=== PATIENT | male | born 1955 | race Caucasian/White ===

== ENCOUNTER 2018-07-20 00:59 | Emergency (ER) | payer OTHER, SELFPAY ==
[2018-07-20 01:15] VITALS: BMI 36.9
--- NOTE | 2018-07-20 01:15 | CT_ITS ---
CT abdomen pelvis wo con INDICATION: Right flank pain. ITS.REASON: right flank pain ORDERING PHYSICIAN: Massimo Thomas MD PATIENT AGE: 63 years COMPARISONNo previous abdominal studies for comparison: . CT thoracic spine from 2018 includes only uppermost retroperitoneal structures TECHNIQUE: No oral nor IV contrast utilized Axial images obtained with sagittal and coronal reformats. All CT scans at the facility use one or more dose reduction, viz: automated exposure control, ma/kV adjustment per patient size (including targeted exams where dose is matched to indication, i.e. head), or iterative reconstruction technique. FINDINGS Lower thorax. Lung bases with chronic changes emphysematous changes mild airway thickening. Mild scarring posterior lung bases with scant pleural thickening posteriorly. Heart normal size. It calcification or stent involving circumflex Abdomen/pelvis.. Lack of oral and IV contrast somewhat decreases sensitivity. Liver Diffuse fatty changes of the liver. No focal lesions. Gallbladder. Contracted. No calcified stones. No biliary ductal dilatation Question some e possible early portal venous collaterals posterior to the stomach and superior to the pancreas towards the spleen. However the spleen is normal upper normal size measuring 14 cm length.. Note Dense 1 cm granuloma calcification at spleen. TRACT. No urinary tract calculi nor obstruction. Ureters unremarkable. PELVIS. .. Diffuse bladder wall thickening which appears more than I would attribute to lack of distention. Thus suspect cystitis requires correlation with urinalysis... Prostate appears modest size seminal vesicles unremarkable. No pelvic adenopathy. GI TRACT. Mild Colonic diverticulosis most evident sigmoid colon. With scattered diverticula elsewhere. No diverticulitis. Moderate stool throughout the right colon with a few diverticuli here. The appendix is normal well visualized. Terminal ileum appears normal. Stomach. Moderate food filled stomach. Small bowel appears satisfactory. No area of inflammation of no free fluid abdomen/pelvis. No free air. Aorta. Mild aneurysmal dilatation aorta just inferior to the renal arteries where aorta measures up to 3.1 cm diameter. Mild dilatation distal aorta and bifurcation. It measures 2.9 mm maximum at this point. The distal right common iliac artery is also dilated up to 16 mm just proximal to its branch point. IMPRESSION: ... 1. Diffuse wall thickening urinary bladder.-suspect cystitis warrants correlation with urinalysis. 2. No nephrolithiasis, nor hydronephrosis, nor obstructing ureteral calculi . Appendix normal . Moderate size benign-appearing nodes of the groin bilaterally 3. Developing Colonic diverticulosis. No diverticulitis 4. Mild infrarenal abdominal aortic aneurysmal dilatation. Calcified aorta up to 3.1 cm cm diameter just inferior to the renal arteries and up to 2.9 cm more distally just above bifurcation 1.6 cm diameter right common iliac artery. 5.. Fatty liver.
[2018-07-20 01:25] LABS: Microscopic, Urine URINE MICROSCOPIC (MICROSCOPIC)
[2018-07-20 01:26] LABS: Basophils % 0.2 % (0.1-2.0); Eosinophils # 0.1 K/mm3 (0.0-0.4); Eosinophils % 0.9 % (0.1-12.0); Hematocrit 45.6 % (42.0-52.0); Hemoglobin 16.1 g/dL (14.1-18.0); Lymphocytes # 2.5 K/mm3 (0.7-4.5); Lymphocytes % 18.1 % (10-50); Mean Corpuscular HGB Conc 35.3 g/dL (31.8-35.4); Mean Corpuscular Hemoglobin 33.6 pg (27.0-31.2); Mean Corpuscular Volume 95.2 fl (80-94); Mean Platelet Volume 7.9 fl (7.4-10.4); Monocytes % 7.3 % (1.7-9.3); Neutrophils # 10.1 K/mm3 (1.8-7.8); Neutrophils % 73.4 % (37.0-80.0); Platelet Count 222 K/mm3 (142-424); Red Blood Count 4.79 M/mm3 (4.60-6.20); Red Cell Distribution Width 12.9 % (11.5-17.5); White Blood Count 13.8 K/mm3 (4.8-10.8)
[2018-07-20 01:31] LABS: Appearance,Urine TURBID (Clear); Blood, Urine 3+ (Negative); Color,Urine RED (Yellow); Glucose,Urine (UA) Negative (Negative); Ketones,Urine TRACE (Negative); Leukocyte Esterase,Urine 3+ (Negative); Nitrate,Urine POSITIVE (Negative); Protein,Urine 3+ (Negative); Specific Gravity, Urine 1.015 (1.005-1.030)
[2018-07-20 01:33] LABS: Bilirubin,Urine Negative (Negative)
[2018-07-20 01:37] VITALS: BP 159/89; PULSE 75; RESP 18; TEMP 36.3; O2SAT 94; BMI 36.9
[2018-07-20 01:37] LABS: Bacteria,Urine 1+ /lpf; RBC,Urine TNTC #/hpf (0-3); Squamous Epithelial Cell,Urine Occasional #/hpf (0-5)
[2018-07-20 01:39] LABS: Alanine Aminotransferase 82 U/L (12-78); Albumin Level 4.1 gm/dL (3.4-5.0); Albumin/Globulin Ratio 1.2 (1.1-1.8); Alkaline Phosphatase 126 U/L (46-116); Anion Gap 14.1 mEq/L (5-15); Aspartate Amino Transferase 29 U/L (15-37); Bilirubin,Total 0.5 mg/dL (0.2-1.0); Blood Urea Nitrogen 17 mg/dL (7-18); Calcium 9.3 mg/dL (8.5-10.1); Carbon Dioxide 26 mmol/L (21.0-32.0); Chloride 97 mmol/L (98-107); Creatinine Clearance Estimated 90 mL/min (50-200); Creatinine,Serum 1.35 mg/dL (0.70-1.30); Estimated Glomerular Filt Rate 53 ml/min (>60); GFR (African American) 65 ML/MIN (>60); Globulin 3.5 gm/dl (1.3-3.2); Glucose 183 mg/dL (74-106); Potassium 4.1 mmoL/L (3.5-5.1); Sodium 133 mmol/L (136-145); Total Protein,Serum 7.6 gm/dL (6.4-8.2)
--- NOTE | 2018-07-20 01:58 | HMH.EDGENADL ---
ED Disposition Clinical Impression: Renal insufficiency, Obesity (BMI 30-39.9) UTI (urinary tract infection) Qualifiers: Urinary tract infection type: acute cystitis Hematuria presence: with hematuria Qualified Code(s): N30.01 - Acute cystitis with hematuria AAA (abdominal aortic aneurysm) Qualifiers: Presence of rupture: without rupture Qualified Code(s): I71.4 - Abdominal aortic aneurysm, without rupture Hematuria Qualifiers: Hematuria type: gross Qualified Code(s): R31.0 - Gross hematuria Disposition: Home, Self-Care Condition on Discharge: Fair Instructions: DI for Hematuria Additional Instructions: use meds and see pcp and urology Prescriptions: levoFLOXacin [Levaquin 500mg tab] 500 mg PO DAILY #7 tab Phenazopyridine HCl [Pyridium 200mg Tablet] 200 pow PO TID #6 tab Referrals: Provider,Referral, [Primary Care Provider] - - Critical Care Critical Care Time: No Attestation: On 07/20/18, the high probability of a clinically significant, sudden or life threatening deterioration of the following system(s) required my full and direct attention, intervention and personal management. The time I documented below is in addition to time spent performing reported procedures but includes the following listed in this critical care notation. Medical Decision Making - Medical Records Medical records reviewed: Yes: I reviewed the patient's medical records. - Simone Inquiry Pt receiving controlled substance: No Vital Signs: 07/20/18 01:37 07/20/18 03:00 07/20/18 03:30 Temperature 97.4 F L Temperature Source Oral Pulse Rate [Right] 75 72 72 Respiratory Rate 18 18 18 Blood Pressure [Right Arm] 159/89 H 152/88 H 156/85 H Blood Pressure Mean [Right Arm] 112 109 108 Blood Pressure Source [Right Arm] Automatic Cuff Automatic Cuff Automatic Cuff Blood Pressure Position [Right Arm] Sitting Sitting Sitting 02 Sat by Pulse Oximetry 94 L 96 96 Oxygen Delivery Method Room Air Room Air Room Air - Lab Data Lab results reviewed: Yes: I reviewed the patient's lab results. Lab Results 07/20/18 01:21: Urine Color Red, Urine Appearance Turbid, Urine pH 5.0, Ur Specific [place] 1.015, Urine Protein 3+, Urine Glucose (UA) Negative, Urine Ketones Trace, Urine Blood 3+, Urine Nitrate Positive, Urine Bilirubin Negative, Urine Urobilinogen 1.0, Ur Leukocyte Esterase 3+ A, Urine RBC Tntc, Urine WBC 10-20, Ur Squamous Epith Cells Occasional, Urine Bacteria 1+ 07/20/18 01:21: WBC 13.8 H, RBC 4.79, Hgb 16.1, Hct 45.6, MCV 95.2 H, MCH 33.6 H, MCHC 35.3, RDW 12.9, Plt Count 222, MPV 7.9, Neut % (Auto) 73.4, Lymph % (Auto) 18.1, [place] % (Auto) 7.3, Eos % (Auto) 0.9, Baso % (Auto) 0.2, Neut # (Auto) 10.1 H, Lymph # (Auto) 2.5, [place] # (Auto) 1.0, Eos # (Auto) 0.1, Baso # (Auto) 0.0 07/20/18 01:21: Sodium 133 L, Potassium 4.1, Chloride 97 L, Carbon Dioxide 26, Anion Gap 14.1, BUN 17, Creatinine 1.35 H, Estimated Creat Clear 90, Estimated GFR 53 L, Est GFR ( Amer) 65, Glucose 183 H, Calcium 9.3, Total Bilirubin 0.5, AST 29, ALT 82 H, Alkaline Phosphatase 126 H, Total Protein 7.6, Albumin 4.1, Globulin 3.5 H, Albumin/Globulin Ratio 1.2 Result diagrams: 07/20/18 01:21 07/20/18 01:21 Orders (Tests/Meds): ED MEDICATIONS Generic Name Dose Route Start Last Admin Trade Name Freq PRN Reason Stop Dose Admin Sodium Chloride 1,000 mls @ 999 mls/hr 07/20/18 01:30 07/20/18 01:23 Sod Chlor 0.9% 1000ml Bag IV 07/20/18 02:30 999 mls/hr .Q1H1M MIRANDA Administration Ceftriaxone Sodium 1 gm/ 50 mls @ 100 mls/hr 07/20/18 03:30 07/20/18 03:37 Sodium Chloride IV 08/03/18 03:29 100 mls/hr Q24H MIRANDA Administration Protocol Discontinued Medications Generic Name Dose Route Start Last Admin Trade Name Freq PRN Reason Stop Dose Admin Ketorolac Tromethamine 30 mg 07/20/18 01:16 07/20/18 01:23 Toradol 30mg/Ml Vial IV 07/20/18 01:17 30 mg ONCE ONE Administration Ondansetron HCl 4 mg 07/20/18 01:
[2018-07-20 03:00] VITALS: BP 152/88; PULSE 72; RESP 18; O2SAT 96
[2018-07-20 03:30] VITALS: BP 156/85; PULSE 72; RESP 18; O2SAT 96
[2018-07-20 04:11] VITALS: BP 152/82; PULSE 70; RESP 18; TEMP 36.3; O2SAT 96
== END 2018-07-20 04:14 | disposition home or self-care (01) ==
PROVIDERS: Emergency Provider Emergency Medicine
DX: N30.01 Acute cystitis with hematuria (principal); I71.4 Abdominal aortic aneurysm, without rupture; I10 Essential (primary) hypertension; Z51.81 Encounter for therapeutic drug level monitoring; Z87.891 Personal history of nicotine dependence
CPT/HCPCS: 74176; 80053; 81001; 85025; 87086; 87088; 87186; 96365; 96367; 96375; 99284; J2405

== ENCOUNTER 2019-08-26 15:31 | Emergency (ER) | payer OTHER, SELFPAY ==
[2019-08-26 15:31] VITALS: PULSE 90; RESP 15; O2SAT 98; BMI 36.2
[2019-08-26 15:43] VITALS: BP 123/62; PULSE 96; RESP 18; TEMP 36.7; O2SAT 97; BMI 36.1
--- NOTE | 2019-08-26 15:47 | XR_ITS ---
PROCEDURE: XR TOE LT MIN 2V Patient Age:64Y CLINICAL INDICATION: lac. Laceration rule out foreign body at tip of great toe. COMPARISON: No exams were available for comparison FINDINGS: AP lateral and oblique views of the great toe First of all the tip of great toe is reviewed distal tuft intact and I see soft tissue disruption at the tip of the great toe on frontal projection. No radiopaque foreign body is seen in this region. On the lateral view there is a curvilinear density which I suspect is toe nail projected which projected over the plantar aspect great toe near the base of distal phalanx great toe. This does not seem to be the region of injury and thus I doubt foreign body here but however clinical correlation required. The osseous structures appear intact at the great toe and other toes. Joint spaces are well maintained. IMPRESSION: Laceration and mild soft tissue disruption evident at tip of great toe.-but no radiopaque foreign body is seen into the tip of the toe beneath the area of soft tissue disruption. Subtle curvilinear density projected over the anterior base of distal phalanx great toe I suspect is most likely a thick toenail as this does not appear to be in the region of injury Dictated by: Viraj Gomez MD 08/26/2019 17:12 Electronically signed by Viraj Gomez MD in [place] 08/26/2019 17:12
--- NOTE | 2019-08-26 16:01 | HMH.EDUTC ---
[facility] [place] Disposition Clinical Impression: Laceration Toe fracture, left Qualifiers: Encounter type: initial encounter Toe: great toe Fracture type: closed Phalanx: unspecified phalanx Fracture alignment: nondisplaced Qualified Code(s): S92.405A - Nondisplaced unspecified fracture of left great toe, initial encounter for closed fracture Disposition: Home, Self-Care Condition on Discharge: Good Instructions: How to Care for a Laceration After Repair, DI for Toe Fracture, DI for Laceration Repair -- Simple Additional Instructions: Suture instructions: You have required stitches today. Please read the following instructions so you know how to care for them: 1. Keep wound area dry for the first 24 hours. 2 May clean gently with mild soap and water, after 48 hours to prevent crusting over suture knots. 3. You may shower if your provider gives permission but do not take a bath until the skin is healed.. 4. Never leave a wet dressing or Band-Aid on your stitches as this allows bacteria to reach the area and may cause infection. Band-aids can cause the wound to sweat and not recommended to wear for long periods of time no neosporin after today Watch for signs of infection: Increasing redness, tenderness or warmth around the suture site Unusual swelling around the site Appearance of pus around each suture or any red streaks Fever If you develop any of the above signs or symptoms of infection, Follow up with Family Physician immediately 5. Suture removal in __12-14__days 6. Return to [facility] or follow up with family doctor for removal. This can be done by any medical provider during regular hours on Monday through Monday, by appointment. Loose dressing and wear the post op shoe Follow up with Podiatry, call tomorrow for appointment for further evaluation and monitoring of wound on great toe for infection Return if needed Straight to ED if any signs of infection or life threatening symptoms Prescriptions: Amoxicillin/Potassium Clav [Augmentin 500mg tab] 1 tab PO BID 7 Days #14 tab Prescription Printed Referrals: Provider,Referral, MD [Primary Care Provider] - As needed Renetta Baeza DPM [Staff Physician] - As needed (Call office for appointment) Time of Disposition: 16:53 Medical Decision Making - Simone Inquiry Pt receiving controlled substance: No Simone was queried for this patient: No Vital Signs: 08/26/19 15:31 08/26/19 15:43 Temperature 98.1 F Temperature Source Oral Pulse Rate [Radial] 90 96 H Respiratory Rate 15 18 Blood Pressure [Right Arm] 123/62 Blood Pressure Mean [Right Arm] 82 Blood Pressure Source [Right Arm] Automatic Cuff Blood Pressure Position [Right Arm] Sitting 02 Sat by Pulse Oximetry 98 97 Oxygen Delivery Method Room Air Orders (Tests/Meds): ED MEDICATIONS Discontinued Medications Generic Name Dose Route Start Last Admin Trade Name Fredoreen PRN Reason Stop Dose Admin Lidocaine HCl 20 ml 08/26/19 15:47 08/26/19 16:48 Lidocaine 1% 20ml Mdv IJ 08/26/19 15:48 20 ml ONCE ONE Administration Tetanus/Diphtheria Toxoids 0.5 ml 08/26/19 15:47 08/26/19 16:01 Tenivac 0.5ml Syringe IM 08/26/19 15:48 0.5 ml .ONCE ONE Administration ORDERS Category Date Time Status XR toe LT min 2V Stat Exams 08/26/19 15:47 Taken - Radiology Data #1 Image(s): Foot/Toes Image Reviewed: Yes I reviewed the patient's radiology image w/the ED provider Discussed with Dr Fernández, Distal Phalanx fx of left great toe - Physician Consults Physician Consulted: Uzma Time: 16:08 Comment/Response: Spoke with Dr Gusman, and she agreed, advised to attempt closure if possible if not leave open with loose non-occlusive dressing and have patient follow up with Podiatry For further evaluation and treatment, IV antibiotics and post op shoe - Reevaluation(s) Time: 16:40 Reevaluation #1: Patient refused IV ancef antibiotics State that he would take the tetanus but refused IV a
[2019-08-26 16:59] VITALS: BP 120/87; PULSE 90; RESP 20; TEMP 36.8; O2SAT 98
== END 2019-08-26 17:01 | disposition home or self-care (01) ==
PROVIDERS: Emergency Provider Nurse Practitioner
DX: S91.212A Laceration without foreign body of left great toe with damage to nail, initial encounter (principal); W31.2XXA Contact with powered woodworking and forming machines, initial encounter; Y92.89 Other specified places as the place of occurrence of the external cause; Z23 Encounter for immunization; Z87.891 Personal history of nicotine dependence
CPT/HCPCS: 12001; 73660; 90471; 90714; 96372; 99202

== ENCOUNTER 2020-01-09 10:55 | Emergency (ER) | payer OTHER, SELFPAY ==
[2020-01-09 10:56] VITALS: BP 130/83; PULSE 70; RESP 18; TEMP 37.2; O2SAT 98; BMI 34.0
--- NOTE | 2020-01-09 11:12 | CT_ITS ---
PROCEDURE: CT ABDOMEN PELVIS W CON CLINICAL INDICATION: abd pain, diarrhea Abdominal pain with diarrhea COMPARISON: CT,DR BONILLA CT abdomen pelvis wo con from 07/20/2018 TECHNIQUE: IV Contrast: 75ML OPTIRAY 350 Oral Contrast None Axial images obtained with sagittal and coronal reformats. All CT scans at the facility use one or more dose reduction, viz: automated exposure control, ma/kV adjustment per patient size (including targeted exams where dose is matched to indication, i.e. head), or iterative reconstruction technique. FINDINGS: LOWER THORAX: COPD with chronic changes ABDOMEN & PELVIS: The liver, gallbladder, spleen, adrenal glands, pancreas, and kidneys have an unremarkable appearance. No renal or ureteral calculi. There is mild diffuse thickening of the colon throughout suggesting colitis. There are few colonic diverticula but no evidence of diverticulitis. No evidence of appendicitis. There are few air-fluid levels within nondistended small bowel with mild thickening of the small bowel in the right lower quadrant. These findings are concerning for enterocolitis. No intestinal obstruction or free air. No abnormal fluid collections. There is mild dilatation of the infrarenal abdominal aorta measuring up to 2.9 cm. Atherosclerotic changes involve the aortoiliac vessels. Mild dilatation of the right common iliac at 1.4 cm and left common iliac at 1.7 cm. There are degenerative changes in the lumbar spine. IMPRESSION: 1. Findings compatible with enterocolitis 2. Mild dilatation of the aortoiliac vessels Dictated by: Brian Lei MD 01/09/2020 12:50 Brian Lei MD in [place] 01/09/2020 12:50
--- NOTE | 2020-01-09 11:25 | HMH.EDGENADL ---
ED Disposition Clinical Impression: Gastroenteritis Disposition: Home, Self-Care Condition on Discharge: Good Instructions: DI for Bacterial Gastroenteritis -- Adult, Gastroenteritis Diet, Preventing the Spread of Coronavirus Discharge Instructions Additional Instructions: You have been evaluated for diarrhea, diagnosed with gastroenteritis. Please take Bentyl and Zofran as prescribed. Please follow-up with your primary care doctor in 1 to 2 days for symptom recheck. Eat bland foods. You also have been tested for COVID-19. Please self isolate until you have results. Return to the emergency department if you have any new or worsening symptoms Prescriptions: Dicyclomine HCl [Bentyl 10mg capsule] 10 mg PO TID #12 cap Transmission Status: Pending to [facility] ondansetron HCL [Ondansetron 4mg tab*] 4 mg PO Q6 PRN #12 tab PRN Reason: Nausea Transmission Status: Pending to [facility] Referrals: Saeed Man [Primary Care Provider] - Time of Disposition: 12:59 - Critical Care Critical Care Time: No Attestation: On 01/09/20, the high probability of a clinically significant, sudden or life threatening deterioration of the following system(s) required my full and direct attention, intervention and personal management. The time I documented below is in addition to time spent performing reported procedures but includes the following listed in this critical care notation. Medical Decision Making - Medical Records Medical records reviewed: Yes: I reviewed the patient's medical records. - Simone Inquiry Pt receiving controlled substance: No Vital Signs: 01/09/20 10:56 01/09/20 12:30 Temperature 98.9 F Temperature Source Oral Pulse Rate [Radial] 70 76 Respiratory Rate 18 Blood Pressure [Right Radial Artery] 130/83 121/75 Blood Pressure Mean [Right Radial Artery] 98 90 Blood Pressure Source [Right Radial Artery] Automatic Cuff Blood Pressure Position [Right Radial Artery] Sitting Sitting 02 Sat by Pulse Oximetry 98 95 Oxygen Delivery Method Room Air Room Air - Lab Data Lab Results 01/09/20 11:30: WBC 14.0 H, RBC 4.69, Hgb 16.0, Hct 48.0, MCV 102.4 H, MCH 34.2 H, MCHC 33.3, RDW 13.2, Plt Count 224, MPV 7.8, Neut % (Auto) 82.2 H, Lymph % (Auto) 9.9 L, [place] % (Auto) 7.5, Eos % (Auto) 0.3, Baso % (Auto) 0.2, Neut # (Auto) 11.5 H, Lymph # (Auto) 1.4, [place] # (Auto) 1.0, Eos # (Auto) 0.0, Baso # (Auto) 0.0 01/09/20 11:30: Sodium 131 L, Potassium 4.2, Chloride 101, Carbon Dioxide 19 L, Anion Gap 15.2 H, BUN 23 H, Creatinine 1.30 H, Estimated Creat Clear 84, Estimated GFR 55 L, Est GFR ( Amer) 67, Glucose 151 H, Calcium 9.4, Total Bilirubin 1.0, AST 32, ALT 28, Alkaline Phosphatase 91, Total Protein 7.8, Albumin 4.3, Globulin 3.5 H, Albumin/Globulin Ratio 1.2 01/09/20 11:30: Lipase 27 Result diagrams: 01/09/20 11:30 01/09/20 11:30 Orders (Tests/Meds): ED MEDICATIONS Discontinued Medications Generic Name Dose Route Start Last Admin Trade Name Freq PRN Reason Stop Dose Admin Dicyclomine HCl 20 mg 01/09/20 12:56 Dicyclomine 10mg Capsule PO 01/09/20 12:57 ONCE ONE Sodium Chloride 1,000 mls @ 999 mls/hr 01/09/20 11:15 01/09/20 11:23 Sod Chlor 0.9% 1000ml Bag IV 01/09/20 12:15 999 mls/hr .Q1H1M MIRANDA Administration Ioversol 75 ml 01/09/20 12:26 01/09/20 12:26 Ioversol-350 (74%) 100ml Vial IV 01/09/20 12:27 75 ml ONCE ONE Administration Protocol Sodium Chloride 10 ml 01/09/20 12:26 01/09/20 12:26 Sodium Chloride 0.9% 10ml Syr (Rad Only) IV 01/09/20 12:27 10 ml ONCE ONE Administration ORDERS Category Date Time Status Covid-19 Nasal PCR ([facility]) Routine Lab 01/09/20 12:43 Received Diarrhea 23 Panel, PCR Stat Lab 01/09/20 12:12 Received UA [Urinalysis and Microscopic] Stat Lab 01/09/20 11:12 Ordered Medical Decision Narrative: In summary this is a 65-year-old male with history of diverticulosis presenting to the emergency d
[2020-01-09 11:38] LABS: Basophils % 0.2 % (0.1-2.0); Eosinophils % 0.3 % (0.1-12.0); Lymphocytes # 1.4 K/mm3 (0.7-4.5); Lymphocytes % 9.9 % (10-50); Mean Corpuscular HGB Conc 33.3 g/dL (31.8-35.4); Mean Corpuscular Hemoglobin 34.2 pg (27.0-31.2); Mean Corpuscular Volume 102.4 fl (80-94); Mean Platelet Volume 7.8 fl (7.4-10.4); Monocytes % 7.5 % (1.7-9.3); Neutrophils # 11.5 K/mm3 (1.8-7.8); Neutrophils % 82.2 % (37.0-80.0); Platelet Count 224 K/mm3 (142-424); Red Blood Count 4.69 M/mm3 (4.60-6.20); Red Cell Distribution Width 13.2 % (11.5-17.5)
[2020-01-09 11:45] LABS: Potassium 4.2 mmoL/L (3.5-5.1)
[2020-01-09 11:47] LABS: Alanine Aminotransferase 28 U/L (12-78); Albumin Level 4.3 g/dl (3.5-5.0); Albumin/Globulin Ratio 1.2 (1.1-1.8); Alkaline Phosphatase 91 U/L (38-126); Aspartate Amino Transferase 32 U/L (17-59); Blood Urea Nitrogen 23 mg/dl (9-20); Carbon Dioxide 19 mmol/L (22.0-30.0); Creatinine Clearance Estimated 84 mL/min (50-200); Estimated Glomerular Filt Rate 55 ml/min (>60); GFR (African American) 67 ML/MIN (>60); Globulin 3.5 g/dL (1.3-3.2); Total Protein,Serum 7.8 g/dl (6.3-8.2)
[2020-01-09 11:48] LABS: Calcium 9.4 mg/dl (8.4-10.2); Glucose 151 mg/dl (74-100); Lipase 27 U/L (23-300)
[2020-01-09 11:53] LABS: Anion Gap 15.2 mEq/L (5-15); Chloride 101 mmol/L (98-107); Sodium 131 mmol/L (136-145)
[2020-01-09 12:25] LABS: Adenovirus F 40/41, stool Not Detected (NotDetected); Astrovirus Not Detected (NotDetected); Clostridium Difficile A/B, PCR Not Detected (NotDetected); Cryptosporidium Not Detected (NotDetected); Cyclospora Cayetanesis Not Detected (NotDetected); Entamoeba histolytica Not Detected (NotDetected); Enteroaggregative E coli Not Detected (NotDetected); Enteropathogenic E coli Not Detected (NotDetected); Enterotoxigenic E coli Not Detected (NotDetected); Giardia lamblia Not Detected (NotDetected); Norovirus Not Detected (NotDetected); Plesimonas Shigalloides, PCR Not Detected (NotDetected); Rotavirus A Not Detected (NotDetected); Salmonella, PCR Not Detected (NotDetected); Sapovirus Not Detected (NotDetected); Shiga-like toxin E coli Not Detected (NotDetected); Shigella Enterovasive E coli Not Detected (NotDetected); Vibrio Cholerae Not Detected (NotDetected); Vibrio, PCR Not Detected (NotDetected); Yersinia Entercolitica, PCR Not Detected (NotDetected)
[2020-01-09 12:30] VITALS: BP 121/75; PULSE 76; O2SAT 95
[2020-01-09 14:09] VITALS: BP 135/74; PULSE 72; RESP 16; TEMP 36.6; O2SAT 98
[2020-01-12 11:17] LABS: Campylobacter Detected (NotDetected)
--- NOTE | 2020-01-12 11:22 | PC.NURSE ---
RECEIVED STOOL RESULTING FROM LAB. SPOKE WITH PATIENT VIA PHONE CONCERNING LAB FINDINGS REPORTED. PT STATES THAT HE IS NOW FEELING 100 PERCENT BETTER AND HE FEELS THOUGH HE IS ON THE [place] SLIDE OF THINGS. EDUCATED PATIENT TO CALL HIS PRIMARY CARE DOCTOR IN THE MORNING FOR FOLLOW UP TO DISCUSS APPROPRIATE TREATMENT. PT VERBALIZES UNDERSTANDING AND AGREES TO DO INSTRUCTED. NO FURTHER QUESTIONS AT THIS TIME.
== END 2020-01-09 14:10 | disposition home or self-care (01) ==
PROVIDERS: Emergency Provider Emergency Medicine; PCP Family Medicine
DX: K52.9 Noninfective gastroenteritis and colitis, unspecified (principal); Z20.828 Contact with and (suspected) exposure to other viral communicable diseases; F17.210 Nicotine dependence, cigarettes, uncomplicated
CPT/HCPCS: 74177; 80053; 83690; 85025; 87507; 96365; 99283; Q9967; U0003

== ENCOUNTER 2023-09-10 08:14 | Emergency (ER) | payer OTHER, SELFPAY ==
[2023-09-10] VITALS (11 sets, daily range): BP systolic 132–168; BP diastolic 71–95; PULSE 49–73; RESP 15–22; TEMP 36.7–36.9; O2SAT 91–97; BMI 35.4
--- NOTE | 2023-09-10 08:15 | ECG_ITS ---
APPROVED REPORT Exam: Resting ECG HR:74 bpm ECG Measurements Heart Rate 74 AXES WI 158 P 64 QRSd 145 QRS 269 QT 432 T 45 QTc 460 Conclusion SINUS RHYTHM WITH OCCASIONAL VENTRICULAR PREMATURE COMPLEXES RIGHT AXIS DEVIATION [QRS AXIS > 100] RIGHT BUNDLE BRANCH BLOCK [120+ ms QRS DURATION, UPRIGHT V1, 40+ ms S IN I/aVL/V4/V5/V6] ABNORMAL ECG Electronically signed by : BETTY PABLO, 09/10/2023 12:21:44
--- NOTE | 2023-09-10 08:18 | HMH.EDGENADL ---
Discharge Plan Disposition Patient Disposition: Xfer Short-Term Hosp Chief Complaint: Nausea/Vomiting/Diarrhea Prescriptions Prescriptions: No Action levothyroxine 175 MCG tablet 175 mcg PO DAILY atorvastatin 80 MG tablet 80 mg PO HS isosorbide mononitrate 30 MG tablet 30 mg PO DAILY ranitidine HCl 150 MG tablet 150 mg PO BID metoprolol tartrate 50 MG tablet 25 mg PO BID allopurinol 300 MG tablet 300 mg PO DAILY lisinopril 40 MG tablet 40 mg PO DAILY capsaicin-methyl alina-menthol 10 ML lotion 10 ml TP QID vitamin E 1,000 UNIT capsule 1,000 unit PO DAILY aspirin 81 MG tablet,delayed release (DR/EC) 81 mg PO DAILY cyanocobalamin (vitamin B-12) 1,000 MCG capsule 1,000 mcg PO DAILY levofloxacin 500 MG tablet 500 mg PO DAILY Qty: 7 0RF phenazopyridine 200 MG tablet 200 pow PO TID Qty: 6 0RF amoxicillin-pot clavulanate 1 EACH tablet 1 tab PO BID 7 Days Qty: 14 0RF dicyclomine 10 MG capsule 10 mg PO TID Qty: 12 0RF ondansetron HCl 4 MG tablet 4 mg PO Q6 PRN (Reason: Nausea) Qty: 12 0RF Referrals Follow up/Referrals: Saeed Man [Primary Care Provider] - See instructions Clinical Impressions Clinical Impression: Acute CVA (cerebrovascular accident) Discharge ED Provider: [facility] HPI General Chief complaint: Nausea/Vomiting/Diarrhea Stated complaint: vomiting Time Seen by Provider: 09/10/23 08:15 History of Present Illness HPI narrative: Patient is a 68-year-old male with past medical history of coronary artery disease status post stenting who presents emergency department for evaluation of vomiting. Onset was acute, since 430 this morning. Patient woke as he normally does however had nausea with vomiting followed by resultant generalized dizziness. Denies headache. After his vomiting he was walking around as if I was drunk . He had 2 swallows of coffee and went out to the porch to smoke a cigarette where due to his dizziness he had to stay on the porch. EMS arrived, heart rate 40, atropine administered, fingerstick blood glucose just under 200. Upon arrival patient states that he has had large resolution of symptoms. Denies headache, chest pain, shortness of breath, blood in his vomit, other acute complaints at this time. Related Data Home Medications Medication Instructions Recorded Confirmed allopurinol 300 mg tablet 300 mg PO DAILY gout 07/20/18 07/20/18 aspirin 81 mg tablet,delayed 81 mg PO DAILY CAD 07/20/18 07/20/18 release atorvastatin 80 mg tablet 80 mg PO HS Cholesterol 07/20/18 07/20/18 capsaicin 0.025 %-methyl 10 ml TP QID Skin condition 07/20/18 07/20/18 salicylate 25 %-menthol 10 % lotion cyanocobalamin (vitamin B-12) 1,000 mcg PO DAILY Diet supplement 07/20/18 07/20/18 1,000 mcg capsule isosorbide mononitrate 30 mg 30 mg PO DAILY CAD 07/20/18 07/20/18 tablet,extended release 24 hr levothyroxine 175 mcg tablet 175 mcg PO DAILY thyroid 07/20/18 07/20/18 lisinopril 40 mg tablet 40 mg PO DAILY CAD 07/20/18 07/20/18 metoprolol tartrate 50 mg tablet 25 mg PO BID CAD 07/20/18 07/20/18 ranitidine HCl 150 mg tablet 150 mg PO BID GERD 07/20/18 07/20/18 vitamin E 670 mg (1,000 unit) 1,000 unit PO DAILY Diet supplement 07/20/18 07/20/18 capsule Previous Rx's Medication Instructions Recorded levofloxacin 500 mg tablet 500 mg PO DAILY #7 tabs 07/20/18 phenazopyridine 200 mg tablet 200 pow PO TID #6 tabs 07/20/18 amoxicillin 500 mg-potassium 1 tab PO BID 7 days #14 tabs 08/26/19 clavulanate 125 mg tablet dicyclomine 10 mg capsule 10 mg PO TID #12 caps 01/09/20 ondansetron HCl 4 mg tablet 4 mg PO Q6 PRN Nausea #12 tabs 01/09/20 Allergies Allergy/AdvReac Type Severity Reaction Status Date / Time BEE VENOM Allergy Unknown SWELLING Uncoded 03/21/17 15:34 ALL OVER [facility] Disclaimer: The information contained in this section may have been updated after the patient was seen, as this information can be updated by other users. Social History Smoking Status: Current every day smoker tobacco type: cigarettes packs per day: 2 alcohol intake: never current occupational status: other Travel in the last 8 weeks: None household members: other housing: other ROS Obtained: Yes Systems reviewed as appropriate & no additional complaints except as documented Physical Exam General General appearance: alert and in no apparent distress Head Head exam: atraumatic and normocephalic Eye Eye exam: Present PERRL and EOMI ENT ENT exam: Present mucous membranes moist Neck Neck exam: Present normal inspection Chest Chest inspection: Present normal inspection and symmetric chest wall rise Respiratory Respiratory exam: Present normal lung sounds bilaterally; Absent respiratory distress Cardiovascular Cardiovascular exam: Present regular rate and normal rhythm Abdominal Exam Abdominal exam: Present soft; Absent tenderness Extremities Exam Extremities exam: Present normal inspection Neurological Exam Neurological exam: Present alert, oriented X3 and CN II-XII intact; Absent motor sensory deficit Psychiatric Psychiatric exam: Present normal affect Skin Skin exam: Present warm and dry Medical Decision Making Simone Inquiry Pt receiving controlled substance: No Vital Signs: 09/10/23 08:15 09/10/23 08:19 09/10/23 08:21 Temperature 98.4 F Temperature Source Oral Pulse Rate Pulse Rate [Left Radial] 73 Respiratory Rate 17 19 22 Blood Pressure 159/83 H 143/81 H Blood Pressure [Right Arm] 138/95 H Blood Pressure Mean [Right Arm] 109 02 Sat by Pulse Oximetry 95 Oxygen Delivery Method Room Air 09/10/23 08:30 09/10/23 09:00 09/10/23 09:31 Temperature Temperature Source Pulse Rate 66 61 Pulse Rate [Left Radial] Respiratory Rate 18 18 17 Blood Pressure 158/88 H 144/84 H 132/72 Blood Pressure [Right Arm] Blood Pressure Mean [Right Arm] 02 Sat by Pulse Oximetry 91 L 95 Oxygen Delivery Method Room Air Room Air 09/10/23 10:00 09/10/23 10:31 09/10/23 11:00 Temperature Temperature Source Pulse Rate 58 L 55 L 52 L Pulse Rate [Left Radial] Respiratory Rate 16 18 15 Blood Pressure 136/71 143/87 H 155/85 H Blood Pressure [Right Arm] Blood Pressure Mean [Right Arm] 02 Sat by Pulse Oximetry 92 L 97 96 Oxygen Delivery Method Room Air Room Air Room Air Lab Data Lab Results 09/10/23 08:24: VBG pH 7.30 L, VBG pCO2 45.9, VBG pO2 75.4 H, VBG HCO3 22.3 L, VBG Total CO2 23.7, VBG O2 Saturation 94.0 H, VBG Base Excess -4.1 L, VBG Lactic Acid 4.7 H 09/10/23 08:25: WBC 9.7, RBC 4.47 L, Hgb 15.6, Hct 48.9, MCV 109.2 H, MCH 34.9 H, MCHC 32.0, RDW 13.4, Plt Count 169, MPV 8.9, Neut % (Auto) 80.0, Lymph % (Auto) 14.1, [place] % (Auto) 4.0, Eos % (Auto) 0.4, Baso % (Auto) 1.4, Neut # (Auto) 7.8, Lymph # (Auto) 1.4, [place] # (Auto) 0.4, Eos # (Auto) 0.0, Baso # (Auto) 0.1, Sodium 138, Potassium 4.6, Chloride 104, Carbon Dioxide 25, Anion Gap 13.6, BUN 18, Creatinine 1.00, Estimated Creat Clear 109, Estimated GFR 74, Est GFR ( Amer) 90, Glucose 221 H, Calcium 9.4, Total Bilirubin 0.5, AST 58, ALT 85 H, Alkaline Phosphatase 89, Troponin I < 0.01, Total Protein 7.4, Albumin 4.3, Globulin 3.1, Albumin/Globulin Ratio 1.4, Lipase 42 09/10/23 08:25 09/10/23 08:25 Orders (Tests/Meds): ED MEDICATIONS Generic Name Dose Route Start Last Admin Trade Name Freq PRN Reason Stop Dose Admin Sodium Chloride 10 ml 09/10/23 09:59 09/10/23 10:03 Sodium Chloride 0.9% 10ml Syr (Rad Only) IV 10/10/23 09:58 10 ml NEEDED PRN Administration Maintain IV Site Discontinued Medications Generic Name Dose Route Start Last Admin Trade Name Freq PRN Reason Stop Dose Admin Aspirin 81 mg 09/10/23 10:38 09/10/23 10:41 Aspirin 81mg Chewable Tablet PO 09/10/23 10:39 81 mg ONCE ONE Administration Lactated Ringer's 1,000 mls @ 999 mls/hr 09/10/23 08:57 09/10/23 09:23 Lactated Ringer's 1000 Ml Bag IV 09/10/23 09:57 999 mls/hr .Q1H1M ONE Administration Iopamidol 100 ml 09/10/23 09:59 09/10/23 10:03 Iopamidol-370 (76%);100ml Bottle IV 09/10/23 10:00 100 ml ONCE ONE Administration Sodium Chloride 50 ml 09/10/23 09:59 09/10/23 10:03 0.9 % Sodium Chloride 50 Ml Vial IV 09/10/23 10:00 50 ml ONCE ONE Administration ORDERS Category Date Time Status CT angio head Stat Cat Scan 09/10/23 08:[address] angio neck Stat Cat Scan 09/10/23 08:[address] head/brain wo con Stat Cat Scan 09/10/23 08:24 Completed CBC w/Auto Diff [Complete Blood Count Auto Diff] Stat Lab 09/10/23 08:25 Completed CMP [Comprehensive Metabolic Panel] Stat Lab 09/10/23 08:25 Completed Lipase Stat Lab 09/10/23 08:25 Completed Trop I [Troponin I] Stat Lab 09/10/23 08:25 Completed Troponin I Q3H Lab 09/10/23 11:30 Ordered Troponin I Q3H Lab 09/10/23 14:30 Ordered VBG [Venous Blood Gas] Stat RT 09/10/23 08:24 Completed ECG Data Tracing #1: Independently interpreted by me, rate is 74, rhythm is regular, axis is rightward deviated, right bundle chelsea block, no ST elevation in anatomical contiguous leads, QTc 460. Medical Decision Narrative: In summary patient is a 68-year-old male with past medical history described above who presents emergency department for evaluation of vomiting. Patient is hemodynamically stable nontoxic-appearing upon arrival, afebrile. Patient was bradycardic prior to arrival and received atropine, no continued bradycardia. Differential includes viral syndrome with resultant vomiting and vagal symptoms, posterior circulation CVA, among others. Patient has a nonfocal neurologic exam upon my assessment. Workup will be conducted with hematologic labs, EKG, CT head, CTA head and neck. Zofran administered prior to arrival and vomiting has ceased. Initial workup reviewed by me, hematologic labs are nonactionable, patient has elevated lactic acid, pH 7.3. I was contacted by radiology, they have concern for an acute infarct of the left cerebellar peduncle. This correlates to patient's intractable dizziness with vomiting and inability to ambulate unassisted at bedside. CTA head and neck no large vessel occlusion. [facility] therefore the case was discussed with neurology Dr. Cody who graciously excepted patient for transfer for continued evaluation at this time. Critical Care Critical Care Time Critical Care Time: Yes Attestation: On 09/10/23, the high probability of a clinically significant, sudden or life threatening deterioration of the following system(s) required my full and direct attention, intervention and personal management. The time I documented below is in addition to time spent performing reported procedures but includes the following listed in this critical care notation. Total Time Total Critical Care Time: 35
--- NOTE | 2023-09-10 08:24 | CT_ITS ---
PROCEDURE INFORMATION: Exam: CT Head Without Contrast Exam date and time: 09/10/2023 9:45 AM Age: 68 years old Clinical indication: Dizziness; Additional info: Intractable dizziness TECHNIQUE: Imaging protocol: Computed tomography of the head without contrast. Radiation optimization: All CT scans at this facility use at least one of these dose optimization techniques: automated exposure control; mA and/or kV adjustment per patient size (includes targeted exams where dose is matched to clinical indication); or iterative reconstruction. COMPARISON: HEADWO CT head/brain wo con 10/12/2017 3:28 PM FINDINGS: Brain: There is an interval new hypodensity noted involving the left cerebellar peduncle image 06/23 which is an age indeterminate infarct. Given the patient's symptoms an acute infarct is questioned. Moderate atrophy and small vessel ischemic changes have progressed since the previous examination. Cerebral ventricles: No ventriculomegaly. Paranasal sinuses: There is an air-fluid level within the right maxillary sinus. Mastoid air cells: Visualized mastoid air cells are well aerated. Bones: Unremarkable. No acute fracture. Soft tissues: Unremarkable. IMPRESSION: Age indeterminate possibly acute infarct involving left cerebellar peduncle extending into the cerebellum. Consider MRI confirmation of acuity.
--- NOTE | 2023-09-10 08:24 | CT_ITS ---
PROCEDURE INFORMATION: Exam: CTA Neck With Contrast Exam date and time: 09/10/2023 9:48 AM Age: 68 years old Clinical indication: Dizziness and giddiness; Additional info: Intractable dizziness TECHNIQUE: Imaging protocol: Computed tomographic angiography of the neck with contrast. Exam focused on the cervical segments of the vasculature. 3D rendering (Not supervised by radiologist): MIP and/or 3D reconstructed images were created by the technologist. Radiation optimization: All CT scans at this facility use at least one of these dose optimization techniques: automated exposure control; mA and/or kV adjustment per patient size (includes targeted exams where dose is matched to clinical indication); or iterative reconstruction. Contrast material: ISOVUE 370; Contrast volume: 100 ml; Contrast route: INTRAVENOUS (IV); COMPARISON: CT ANGIO HEAD 09/10/2023 9:48 AM FINDINGS: Right common carotid artery: No stenosis. No dissection or occlusion. Right internal carotid artery: No stenosis of the extracranial segment. No dissection or occlusion. Right external carotid artery: No occlusion or stenosis of the origin. Left common carotid artery: No stenosis. No dissection or occlusion. Left internal carotid artery: No stenosis of the extracranial segment. No dissection or occlusion. Left external carotid artery: No occlusion or stenosis of the origin. Right vertebral artery: No stenosis. No dissection or occlusion. Left vertebral artery: The origin of the left vertebral artery arises directly from the aorta with at least 50% stenosis. Lymph nodes: Numerous lymph nodes in the mediastinum. The largest is partially calcified measuring 14 x 25 mm. Mediastinum is incompletely visualized. Soft tissues: Normal. No significant soft tissue swelling. Bones/joints: No acute fracture. Lungs: There is a ground-glass appearance seen in lungs with peripheral bronchovascular marking prominence suggestive of coexistent interstitial lung disease. IMPRESSION: 1. Abnormal lung apices. Suspect interstitial lung disease. 2. No evidence of a hemodynamically significant stenosis or a large vessel occlusion except for the origin of the left vertebral artery which demonstrates a moderate to severe stenosis.. REFERENCES: NASCET CRITERIA. The degree of stenosis in the cervical segment of the internal carotid artery is based on NASCET criteria. Normal is no stenosis. Mild is less than 50% stenosis. Moderate is 50-69% stenosis. Severe is 70% to 99% stenosis. Total occlusion is no detectable patent lumen.
--- NOTE | 2023-09-10 08:24 | CT_ITS ---
PROCEDURE INFORMATION: Exam: CTA Head With Contrast, Arteriography Exam date and time: 09/10/2023 9:48 AM Age: 68 years old Clinical indication: Dizziness and giddiness; Additional info: Intractable dizziness TECHNIQUE: Imaging protocol: Computed tomographic angiography of the head with contrast. Exam focused on the arteries. 3D rendering (Not supervised by radiologist): MIP and/or 3D reconstructed images were created by the technologist. Radiation optimization: All CT scans at this facility use at least one of these dose optimization techniques: automated exposure control; mA and/or kV adjustment per patient size (includes targeted exams where dose is matched to clinical indication); or iterative reconstruction. Contrast material: ISOVUE 370; Contrast volume: 100 ml; Contrast route: INTRAVENOUS (IV); COMPARISON: CT HEAD/BRAIN WO CON 09/10/2023 9:45 AM FINDINGS: ANTERIOR CIRCULATION: Right internal carotid artery: Extensive calcification of right distal internal carotid artery within the cavernous sinus and supraclinoid region however, no greater than a 40% stenosis. Right middle cerebral artery: No occlusion or significant stenosis. No aneurysm. Right anterior cerebral artery: There is no right A1 segment. The right A2 segment is seen likely filling via the anterior communicating. Left internal carotid artery: Intracranial segment is patent with no significant stenosis. No aneurysm. Left middle cerebral artery: No occlusion or significant stenosis. No aneurysm. Left anterior cerebral artery: No occlusion or significant stenosis. No aneurysm. POSTERIOR CIRCULATION: Right vertebral artery: No occlusion or significant stenosis. No aneurysm. Left vertebral artery: No occlusion or significant stenosis. No aneurysm. Basilar artery: No occlusion or significant stenosis. No aneurysm. Right posterior cerebral artery: No occlusion or significant stenosis. No aneurysm. Left posterior cerebral artery: No occlusion or significant stenosis. No aneurysm. Brain: No definite mass, mass effect, or midline shift. Cerebral ventricles: No ventriculomegaly. Bones/joints: Unremarkable. No acute fracture. Soft tissues: Unremarkable. IMPRESSION: No acute abnormality. No evidence of a hemodynamically significant stenosis or large vessel occlusion.
[2023-09-10 08:36] LABS: VBG Base Excess -4.1 mmol/L (-2.4-2.3); VBG HCO3 22.3 mmol/L (23-30); VBG PCO2 45.9 mmol/L (35-51); VBG PO2 75.4 mmol/L (28-40); VBG Total CO2 23.7 mmol/L (23-27)
[2023-09-10 08:38] LABS: Lactate Venous 4.7 mmol/L (0.4-2.0)
[2023-09-10 08:53] LABS: Basophils # 0.1 K/mm3 (0-0.2); Basophils % 1.4 % (0.1-2.0); Eosinophils % 0.4 % (0.1-12.0); Hematocrit 48.9 % (42.0-52.0); Hemoglobin 15.6 g/dL (14.1-18.0); Lymphocytes # 1.4 K/mm3 (0.7-4.5); Lymphocytes % 14.1 % (10-50); Mean Corpuscular Hemoglobin 34.9 pg (27.0-31.2); Mean Corpuscular Volume 109.2 fl (80-94); Mean Platelet Volume 8.9 fl (7.4-10.4); Monocytes # 0.4 K/mm3 (0.1-1.0); Neutrophils # 7.8 K/mm3 (1.8-7.8); Platelet Count 169 K/mm3 (142-424); Red Blood Count 4.47 M/mm3 (4.60-6.20); Red Cell Distribution Width 13.4 % (11.5-17.5); White Blood Count 9.7 K/mm3 (4.8-10.8)
[2023-09-10 09:14] LABS: Chloride 104 mmol/L (98-107); Potassium 4.6 mmoL/L (3.5-5.1); Sodium 138 mmol/L (136-145)
[2023-09-10 09:17] LABS: Alanine Aminotransferase 85 U/L (12-78); Albumin Level 4.3 g/dl (3.5-5.0); Albumin/Globulin Ratio 1.4 (1.1-1.8); Alkaline Phosphatase 89 U/L (38-126); Anion Gap 13.6 mEq/L (5-15); Aspartate Amino Transferase 58 U/L (17-59); Bilirubin,Total 0.5 mg/dl (0.2-1.3); Blood Urea Nitrogen 18 mg/dl (9-20); Calcium 9.4 mg/dl (8.4-10.2); Carbon Dioxide 25 mmol/L (22.0-30.0); Creatinine Clearance Estimated 109 mL/min (50-200); Estimated Glomerular Filt Rate 74 ml/min (>60); GFR (African American) 90 ML/MIN (>60); Globulin 3.1 g/dL (1.3-3.2); Glucose 221 mg/dl (74-100); Lipase 42 U/L (23-300); Total Protein,Serum 7.4 g/dl (6.3-8.2)
[2023-09-10] MEDS: LACTATED RINGERS 1000ML 1,000 ML 999 ML IV (09:23)
[2023-09-10 09:33] LABS: Troponin I < 0.01 ng/ml (0.00-0.034)
--- NOTE | 2023-09-10 09:38 | PC.NURSE ---
pt to CT via stretcher
[2023-09-10] MEDS: IOPAMIDOL-370 (76%);100ML BOTTLE 100 ML IV (10:03)
[2023-09-10] MEDS: SODIUM CHLORIDE 0.9% 10ML SYR (RAD ONLY) 10 ML IV (10:03)
[2023-09-10] MEDS: 0.9 % SODIUM CHLORIDE 50 ML VIAL IV (10:03)
--- NOTE | 2023-09-10 10:29 | PC.NURSE ---
walked pt with 2 assist, pt was able to ambulate after getting his balance. When getting up from the bed he tilted side to side stating that he was very dizzy, states that he balance has been off this morning, states that his balance started yesterday afternoon, states he feels like he is drunk.
[2023-09-10] MEDS: ASPIRIN 81MG CHEWABLE TABLET 81 MG PO (10:41)
--- NOTE | 2023-09-10 11:10 | PC.NURSE ---
[facility]
[2023-09-10 12:37] LABS: Reflex Lactic Add Lactic Reflex
== END 2023-09-10 12:30 | disposition short-term general hospital (02) ==
PROVIDERS: Emergency Provider Emergency Medicine; PCP Family Medicine
DX: I63.212 Cerebral infarction due to unspecified occlusion or stenosis of left vertebral artery (principal); R11.2 Nausea with vomiting, unspecified; I45.10 Unspecified right bundle-branch block; I49.1 Atrial premature depolarization; R42 Dizziness and giddiness; F17.210 Nicotine dependence, cigarettes, uncomplicated; I11.9 Hypertensive heart disease without heart failure; I25.10 Atherosclerotic heart disease of native coronary artery without angina pectoris; Z95.5 Presence of coronary angioplasty implant and graft
CPT/HCPCS: 70450; 70496; 70498; 80053; 82803; 83690; 84484; 85025; 93005; 96360; 99291; J7120; Q9967

== ENCOUNTER 2024-06-12 15:33 | Emergency (ER) | payer OTHER, SELFPAY ==
[2024-06-12] VITALS (7 sets, daily range): BP systolic 139–160; BP diastolic 77–109; PULSE 71–85; RESP 18; TEMP 36.8; O2SAT 92–98; BMI 35.9
--- NOTE | 2024-06-12 15:44 | ED_ITS ---
<Statement entered by Celeste Correia DO - 06/12/24 22:43> I was consulted by the AZUCENA, and we discussed the complexity of the problems being addressed. I approved the treatment and management plan for this patient's care in the emergency department, thus performing a substantive portion of the medical decision making. Celeste Correia DO Discharge Plan Disposition Patient Disposition: Home, Self-Care Condition: Good Chief Complaint: Extremity Injury, Upper Prescriptions Prescriptions: No Action levothyroxine 175 MCG tablet 175 mcg PO DAILY atorvastatin 80 MG tablet 80 mg PO HS isosorbide mononitrate 30 MG tablet 30 mg PO DAILY ranitidine HCl 150 MG tablet 150 mg PO BID metoprolol tartrate 50 MG tablet 25 mg PO BID allopurinol 300 MG tablet 300 mg PO DAILY lisinopril 40 MG tablet 40 mg PO DAILY capsaicin-methyl alina-menthol 10 ML lotion 10 ml TP QID vitamin E 1,000 UNIT capsule 1,000 unit PO DAILY aspirin 81 MG tablet,delayed release (DR/EC) 81 mg PO DAILY cyanocobalamin (vitamin B-12) 1,000 MCG capsule 1,000 mcg PO DAILY levofloxacin 500 MG tablet 500 mg PO DAILY Qty: 7 0RF phenazopyridine 200 MG tablet 200 pow PO TID Qty: 6 0RF amoxicillin-pot clavulanate 1 EACH tablet 1 tab PO BID 7 Days Qty: 14 0RF dicyclomine 10 MG capsule 10 mg PO TID Qty: 12 0RF ondansetron HCl 4 MG tablet 4 mg PO Q6 PRN (Reason: Nausea) Qty: 12 0RF Referrals Follow up/Referrals: [facility] [Primary Care Provider] - See instructions Activity Restrictions/Add. Instructions Additional Instructions/Restrictions: Keep the area clean, wrapped, return to the emergency department with any worsening signs or symptoms any worsening bleeding. Follow-up with your family doctor. Clinical Impressions Clinical Impression: Abrasion of forearm, left, Skin tear Instructions Patient Instructions: DI for Abrasion, Skin Wound Print Language Print Language: Albanian Discharge ED Provider: Celeste Correia General Adult HPI General Chief complaint: Extremity Injury, Upper Stated complaint: Ao03/12@1315 LT arm inj Time Seen by Provider: 06/12/24 15:39 Mode of Arrival: Ambulatory Source of Information: Patient Limitations: No Limitations History of Present Illness HPI narrative: 69-year-old male presents to the Emergency Department accompanied by his for a left arm injury/abrasion. Patient states that he was up on a ladder trimming some limbs, a branch came back and hit me in my arm , denies falling o ff the ladder, denies striking head, denies any LOC, this to pain and swelling of his left forearm with some bleeding, patient is on anticoagulation therapy with Eliquis. Patient denies any presyncopal, syncopal episodes no dizziness no lightheadedness, no other upper or lower extremity injury, no neck pain no back pain, patient states he did not fall off the ladder , patient denies any fever chills chest pain shortness of breath nausea vomiting constipation diarrhea, no abdominal pain, no urinary type symptomatology. Patient has other past medical history consistent with everyday smoker, occasional alcohol use, no other drug use, history of prior TIA/CVA however this is data deficient, obesity, AAA, gout, hyperlipidemia, patient is on anticoagulation therapy with what sounds like Eliquis, hypertension. Initial triage vitals grossly unremarkable. Onset (ago): hour(s) Related Data Home Medications ?Medication ?Instructions ?Recorded ?Confirmed allopurinol 300 mg tablet 300 mg PO DAILY gout 07/20/18 07/20/18 aspirin 81 mg tablet,delayed 81 mg PO DAILY CAD 07/20/18 07/20/18 release atorvastatin 80 mg tablet 80 mg PO HS Cholesterol 07/20/18 07/20/18 capsaicin 0.025 %-methyl 10 ml TP QID Skin condition 07/20/18 07/20/18 salicylate 25 %-menthol 10 % lotion cyanocobalamin (vitamin B-12) 1,000 mcg PO DAILY Diet supplement 07/20/18 07/20/18 1,000 mcg capsule isosorbide mononitrate 30 mg 30 mg PO DAILY CAD 07/20/18 07/20/18 tablet,extended release 24 hr levothyroxine 175 mcg tablet 175 mcg PO DAILY thyroid 07/20/18 07/20/18 lisinopril 40 mg tablet 40 mg PO DAILY CAD 07/20/18 07/20/18 metoprolol tartrate 50 mg tablet 25 mg PO BID CAD 07/20/18 07/20/18 ranitidine HCl 150 mg tablet 150 mg PO BID GERD 07/20/18 07/20/18 vitamin E 670 mg (1,000 unit) 1,000 unit PO DAILY Diet supplement 07/20/18 07/20/18 capsule Previous Rx's ?Medication ?Instructions ?Recorded levofloxacin 500 mg tablet 500 mg PO DAILY #7 tabs 07/20/18 phenazopyridine 200 mg tablet 200 pow PO TID #6 tabs 07/20/18 amoxicillin 500 mg-potassium 1 tab PO BID 7 days #14 tabs 08/26/19 clavulanate 125 mg tablet dicyclomine 10 mg capsule 10 mg PO TID #12 caps 01/09/20 ondansetron HCl 4 mg tablet 4 mg PO Q6 PRN Nausea #12 tabs 01/09/20 Allergies Allergy/AdvReac Type Severity Reaction Status Date / Time BEE VENOM Allergy Unknown SWELLING Uncoded 03/21/17 15:34 ALL OVER [facility] Disclaimer: The information contained in this section may have been updated after the patient was seen, as this information can be updated by other users. Social History Smoking Status: Current every day smoker tobacco type: cigarettes packs per day: 2 alcohol intake: never current occupational status: other Travel in the last 8 weeks: None household members: other housing: other Have you lived/traveled outside [place] in past 30 days?: No Contact w/someone who lives/traveled outside US past 30 days?: No Exposure to someone with infectious disease in past 14 days?: No Do you have a fever (greater than 100.4 F or 38 C)?: No Have you tested positive for COVID-19: No Exposed to someone with COVID-19 in past 14 days?: No Do you have a sore throat?: No Do you have a cough?: No Do you have any weakness?: No Do you have any diarrhea?: No Are you experiencing any unusual bleeding?: No Do you have any muscle aches/pain?: No Do you have any abdominal pain?: No Are you experiencing loss of taste or smell?: No Other Medical History Have you received the Flu Vaccine for this season: No Have you received the Pneumonia Vaccine: No ROS Obtained: Yes All systems reviewed & no additional complaints except as documented Physical Exam General General appearance: alert and in no apparent distress Head Head exam: atraumatic and normocephalic Eye Eye exam: Present PERRL and EOMI ENT ENT exam: Present mucous membranes moist Neck Neck exam: Present normal inspection Chest Chest inspection: Present normal inspection and symmetric chest wall rise Respiratory Respiratory exam: Present normal lung sounds bilaterally; Absent respiratory distress Cardiovascular Cardiovascular exam: Present regular rate and normal rhythm Abdominal Exam Abdominal exam: Present soft; Absent tenderness Extremities Exam Extremities exam: Present normal inspection, full ROM, tenderness, joint swelling and other (There is some obvious hematoma, superficial skin abrasion on the left dorsal forearm, patient otherwise neurovasc intact, some mild tenderness palpation to the area, otherwise patient moves extremity to command, good finger opposition, Dudley's are soft there is no foreign body notable to my exam) Neurological Exam Neurological exam: Present alert and oriented X3 Psychiatric Psychiatric exam: Present normal affect Skin Skin exam: Present warm, dry and other (Area of hematoma/superficial skin abrasion on the left dorsal forearm) Medical Decision Making Medical Records Medical records reviewed: Yes I reviewed the patient's medical records. Screening: Per USPSTF and CDC recommendations, given the prevalence of disease in our region, it is our hospital?s policy to screen for HIV and viral Hepatitis for all patients aged 18 and over and those with ongoing risk factors. Simone Inquiry Pt receiving controlled substance: No Simone was queried for this patient: No Vital Signs: 06/12/24 15:41 06/12/24 15:43 06/12/24 15:45 Temperature 98.3 F Temperature Source Oral Pulse Rate 75 77 Pulse Rate [Right Radial] 85 Respiratory Rate 18 Blood Pressure Blood Pressure [Right Arm] 151/109 H Blood Pressure Mean [Right Arm] 123 Blood Pressure Source [Right Arm] Automatic Cuff 02 Sat by Pulse Oximetry 98 93 L 93 L Oxygen Delivery Method Room Air 06/12/24 16:00 06/12/24 16:15 06/12/24 16:30 Temperature Temperature Source Pulse Rate 74 71 72 Pulse Rate [Right Radial] Respiratory Rate Blood Pressure 160/107 H 139/77 Blood Pressure [Right Arm] Blood Pressure Mean [Right Arm] Blood Pressure Source [Right Arm] 02 Sat by Pulse Oximetry 93 L 92 L 93 L Oxygen Delivery Method Orders (Tests/Meds): ORDERS Category Date Time Status Wrist XR left minimum 3 views [XR wrist LT min 3V] Stat Exams 06/12/24 15:52 Completed XR forearm LT 2V Stat Exams 06/12/24 15:52 Completed XR hand LT min 3V Stat Exams 06/12/24 15:52 Completed Medical Decision Narrative: 69-year-old male presents to the emergency department with a left forearm injury. Differential diagnose include but not limited to, superficial abrasion, forearm fracture, forearm sprain/strain, hematoma. I discussed patient case with attending physician Dr. Correia Will obtain x-rays of the hand, wrist and forearm on the left for further evaluation/characterization, copious irrigation was utilized on the wound, there is no obvious open fracture or obvious traumatic malalignment or deformity. Reviewed the patient's left forearm x-ray, left wrist x-ray, left hand x-ray along the corresponding radiologic report, there is no fracture or dislocation, there is soft tissue edema over the dorsal aspect of the distal forearm, there is a linear metallic foreign body measuring 4 mm adjacent to the lateral epicondyle, overall soft tissue swelling without acute bony abnormality, and there are tiny metallic densities in the second and third digits probably due to punctate metallic foreign bodies. Evaluation of the patient at approximately 5:05 PM, patient evaluation has no other acute complaints, no metallic or foreign bodies notable per my exam. Will perform generalized wound care and wrapped the patient's arm, with nonadhesive dressing with Xeroform gauze for bleeding and hematoma. Patient was given strict ED return precautions, patient will return to the emergency department with any worsening signs or symptoms. Patient and family voiced un derstand agree with current treatment plan/discharge plan. Will follow-up with PCP as directed. Critical Care Critical Care Time Critical Care Time: No
--- NOTE | 2024-06-12 15:47 | PC.NURSE ---
Robbie at bedside to see patient. ROM in place, pulses palpable, cap refill <2. call light w/i reach. at bedside.
--- NOTE | 2024-06-12 15:52 | XR_ITS ---
FINAL REPORT CLINICAL HISTORY: Tree injury FINDINGS: Left hand Three views were obtained. There is no fracture or dislocation. There is moderate DIP and PIP joint space narrowing. There are tiny metallic densities in the second and third digits, probably due to punctate metallic foreign bodies. IMPRESSION: Foreign bodies as above. Reviewed, Interpreted and Dictated by Harsha Gomez MD Transcribed by Kelly Mccullough Authenticated and [facility]
--- NOTE | 2024-06-12 15:52 | XR_ITS ---
FINAL REPORT CLINICAL HISTORY: Tree injury FINDINGS: Left forearm Two views were obtained. There is no fracture or dislocation. The joint spaces appear normal. There is soft tissue edema over the dorsal aspect of the distal forearm. There is a linear metallic foreign body measuring 4 mm adjacent to the lateral epicondyle. IMPRESSION: Metallic foreign body as above. Reviewed, Interpreted and Dictated by Harsha Gomez MD Transcribed by Kelly Mccullough Authenticated and . [facility]
--- NOTE | 2024-06-12 15:52 | XR_ITS ---
FINAL REPORT CLINICAL HISTORY: tree injury FINDINGS: Left wrist Three views were obtained. There is no fracture or dislocation. The joint spaces appear normal. There is soft tissue swelling over the dorsum of the wrist. IMPRESSION: Soft tissue swelling without acute bony abnormality. Reviewed, Interpreted and Dictated by Harsha Gomez MD Transcribed by Kelly Mccullough Authenticated and . [facility]
== END 2024-06-12 17:45 | disposition home or self-care (01) ==
PROVIDERS: Emergency Provider Emergency Medicine
DX: S50.812A Abrasion of left forearm, initial encounter (principal); M79.602 Pain in left arm; F17.210 Nicotine dependence, cigarettes, uncomplicated; Z79.01 Long term (current) use of anticoagulants; W20.8XXA Other cause of strike by thrown, projected or falling object, initial encounter; Y93.89 Activity, other specified; Y92.89 Other specified places as the place of occurrence of the external cause
CPT/HCPCS: 73090; 73110; 73130; 99283

== ENCOUNTER 2024-06-13 17:23 | Emergency (ER) | payer OTHER, SELFPAY ==
[2024-06-13] VITALS (7 sets, daily range): BP systolic 128–175; BP diastolic 58–68; PULSE 39–87; RESP 16–25; TEMP 36.6–37; O2SAT 94–98; BMI 35.9
--- NOTE | 2024-06-13 17:28 | ECG_ITS ---
APPROVED REPORT Exam: Resting ECG HR:87 bpm ECG Measurements Heart Rate 87 AXES FL 131 P 68 QRSd 135 QRS -59 QT 407 T 42 QTc 451 Conclusion SINUS RHYTHM WITH FREQUENT VENTRICULAR PREMATURE COMPLEXES LEFT AXIS DEVIATION [QRS AXIS < -30] RIGHT BUNDLE BRANCH BLOCK [120+ ms QRS DURATION, UPRIGHT V1, 40+ ms S IN I/aVL/V4/V5/V6] ABNORMAL ECG Electronically signed by : BETTY PABLO, 06/14/2024 10:23:07
--- NOTE | 2024-06-13 17:30 | CT_ITS ---
PROCEDURE INFORMATION: Exam: CT Head Without Contrast Exam date and time: 06/13/2024 5:36 PM Age: 69 years old Clinical indication: Stroke-like symptoms; Other: Left sided weakness TECHNIQUE: Imaging protocol: Computed tomography of the head without contrast. Radiation optimization: All CT scans at this facility use at least one of these dose optimization techniques: automated exposure control; mA and/or kV adjustment per patient size (includes targeted exams where dose is matched to clinical indication); or iterative reconstruction. Other technique: STROKE PROTOCOL was implemented. COMPARISON: CT ANGIO HEAD 09/10/2023 9:48 AM FINDINGS: Brain: There is moderate diffuse cerebral volume loss present. Multiple subcortical and deep hypoattenuating white matter foci are present, likely related to small vessel senescent changes and can also be seen with prior infectious / inflammatory insult, or prior traumatic events. No hyperattenuating foci are identified to suggest acute intracranial hemorrhage. Cerebral ventricles: No ventriculomegaly. Paranasal sinuses: Visualized sinuses are unremarkable. No fluid levels. Mastoid air cells: Visualized mastoid air cells are well aerated. Bones: Unremarkable. No acute fracture. Soft tissues: Unremarkable. IMPRESSION: 1. Multiple subcortical and deep hypoattenuating white matter foci are present, likely related to small vessel senescent changes and can also be seen with prior infectious / inflammatory insult, or prior traumatic events. 2. No hyperattenuating foci are identified to suggest acute intracranial hemorrhage. ASSESSMENT: ASPECTS ([place] Stroke Program Early CT Score) is 10.
--- NOTE | 2024-06-13 17:30 | CT_ITS ---
PROCEDURE INFORMATION: Exam: CTA Neck With Contrast Exam date and time: 06/13/2024 5:36 PM Age: 69 years old Clinical indication: Stroke-like symptoms; Other: Left weakness; Additional info: Left sided weakness TECHNIQUE: Imaging protocol: Computed tomographic angiography of the neck with contrast. Exam focused on the cervical segments of the vasculature. 3D rendering (Not supervised by radiologist): MIP and/or 3D reconstructed images were created by the technologist. Radiation optimization: All CT scans at this facility use at least one of these dose optimization techniques: automated exposure control; mA and/or kV adjustment per patient size (includes targeted exams where dose is matched to clinical indication); or iterative reconstruction. Contrast material: ISOUVE 370; Contrast volume: 80 ml; Contrast route: INTRAVENOUS (IV); COMPARISON: CT ANGIO NECK 09/10/2023 9:48 AM FINDINGS: Right common carotid artery: Moderate calcific atherosclerotic disease of the right carotid bulb resulting in moderate stenosis of the proximal right ICA. Right internal carotid artery: See Right common carotid artery finding. Right external carotid artery: No occlusion or stenosis of the origin. Left common carotid artery: Moderate calcific atherosclerotic disease of the left carotid bulb resulting in moderate stenosis. Left internal carotid artery: No stenosis of the extracranial segment. No dissection or occlusion. Left external carotid artery: No occlusion or stenosis of the origin. Right vertebral artery: No stenosis. No dissection or occlusion. Left vertebral artery: No stenosis. No dissection or occlusion. Soft tissues: Normal. No significant soft tissue swelling. Bones/joints: Moderate loss of intervertebral disc space with degenerative changes involving C4 through C7. IMPRESSION: 1. Moderate calcific atherosclerotic disease of the right carotid bulb resulting in moderate stenosis of the proximal right ICA. 2. Moderate calcific atherosclerotic disease of the left carotid bulb resulting in moderate stenosis. REFERENCES: NASCET CRITERIA. The degree of stenosis in the cervical segment of the internal carotid artery is based on NASCET criteria. Normal is no stenosis. Mild is less than 50% stenosis. Moderate is 50-69% stenosis. Severe is 70% to 99% stenosis. Total occlusion is no detectable patent lumen.
--- NOTE | 2024-06-13 17:31 | PC.NURSE ---
FSBS on the pt was 112
--- NOTE | 2024-06-13 17:31 | PC.NURSE ---
pt going to ct scan at this time.
--- NOTE | 2024-06-13 17:36 | CT_ITS ---
PROCEDURE INFORMATION: Exam: CTA Head With Contrast, Arteriography Exam date and time: 06/13/2024 5:36 PM Age: 69 years old Clinical indication: Stroke-like symptoms; Other: Left sided weakness; Additional info: Stroke alert TECHNIQUE: Imaging protocol: Computed tomographic angiography of the head with contrast. Exam focused on the arteries. 3D rendering (Not supervised by radiologist): MIP and/or 3D reconstructed images were created by the technologist. Radiation optimization: All CT scans at this facility use at least one of these dose optimization techniques: automated exposure control; mA and/or kV adjustment per patient size (includes targeted exams where dose is matched to clinical indication); or iterative reconstruction. Contrast material: ISOVUE 370; Contrast volume: 80 ml; Contrast route: INTRAVENOUS (IV); COMPARISON: CT ANGIO HEAD 09/10/2023 9:48 AM FINDINGS: ANTERIOR CIRCULATION: Right internal carotid artery: Severe calcific atherosclerotic disease of the right intracranial ICA resulting in severe stenosis of the cavernous segment. Right middle cerebral artery: No occlusion or significant stenosis. No aneurysm. Right anterior cerebral artery: No occlusion or significant stenosis. No aneurysm. Left internal carotid artery: Moderate calcific atherosclerotic disease of the left intracranial ICA resulting in moderate stenosis of the ophthalmic segment. Left middle cerebral artery: No occlusion or significant stenosis. No aneurysm. Left anterior cerebral artery: No occlusion or significant stenosis. No aneurysm. POSTERIOR CIRCULATION: Right vertebral artery: No occlusion or significant stenosis. No aneurysm. Left vertebral artery: No occlusion or significant stenosis. No aneurysm. Basilar artery: No occlusion or significant stenosis. No aneurysm. Right posterior cerebral artery: No occlusion or significant stenosis. No aneurysm. Left posterior cerebral artery: No occlusion or significant stenosis. No aneurysm. Brain: No definite mass, mass effect, or midline shift. Cerebral ventricles: No ventriculomegaly. Bones/joints: Unremarkable. No acute fracture. Soft tissues: Unremarkable. IMPRESSION: 1. Severe calcific atherosclerotic disease of the right intracranial ICA resulting in severe stenosis of the cavernous segment. 2. Moderate calcific atherosclerotic disease of the left intracranial ICA resulting in moderate stenosis of the ophthalmic segment.
--- NOTE | 2024-06-13 17:37 | HMH.ITSTN ---
per YANIV Mi ok to modify stroke alert orders.
[2024-06-13] MEDS: 0.9 % SODIUM CHLORIDE 50 ML VIAL IV (17:39)
[2024-06-13] MEDS: IOPAMIDOL-370 (76%);100ML BOTTLE 80 ML IV (17:39)
[2024-06-13] MEDS: SODIUM CHLORIDE 0.9% 10ML SYR (RAD ONLY) 10 ML IV (17:39)
[2024-06-13 17:40] LABS: Basophils % 0.2 % (0.1-2.0); Eosinophils # 0.1 K/mm3 (0.0-0.4); Eosinophils % 0.7 % (0.1-12.0); Hematocrit 42.9 % (42.0-52.0); Hemoglobin 14.8 g/dL (14.1-18.0); Lymphocytes # 2.9 K/mm3 (0.7-4.5); Lymphocytes % 23.1 % (10-50); Mean Corpuscular HGB Conc 34.5 g/dL (31.8-35.4); Mean Corpuscular Hemoglobin 33.4 pg (27.0-31.2); Mean Corpuscular Volume 96.8 fl (80-94); Monocytes % 7.8 % (1.7-9.3); Neutrophils # 8.4 K/mm3 (1.8-7.8); Neutrophils % 67.8 % (37.0-80.0); Platelet Count 219 K/mm3 (142-424); Red Blood Count 4.43 M/mm3 (4.60-6.20); Red Cell Distribution Width 13.1 % (11.5-17.5); White Blood Count 12.4 K/mm3 (4.8-10.8)
[2024-06-13 17:48] LABS: Albumin Level 4.9 g/dl (3.5-5.0); Chloride 102 mmol/L (98-107); Potassium 4.4 mmoL/L (3.5-5.1); Sodium 135 mmol/L (136-145)
[2024-06-13 17:50] LABS: Alanine Aminotransferase 63 U/L (12-78); Anion Gap 14.4 mEq/L (5-15); Aspartate Amino Transferase 59 U/L (17-59); Blood Urea Nitrogen 15 mg/dl (9-20); Carbon Dioxide 23 mmol/L (22.0-30.0); Creatinine Clearance Estimated 84 mL/min (50-200); Estimated Glomerular Filt Rate 55 ml/min (>60); GFR (African American) 66 ML/MIN (>60)
[2024-06-13 17:51] LABS: Alkaline Phosphatase 113 U/L (38-126); Calcium 9.3 mg/dl (8.4-10.2); Chol/HDL Ratio 3.7 (1-3.5); Cholesterol 100 mg/dl (140-200); Globulin 2.5 g/dL (1.3-3.2); Glucose 94 mg/dl (74-100); HDL Cholesterol 27 mg/dl (40-60); Total Protein,Serum 7.4 g/dl (6.3-8.2); Triglycerides 144 mg/dl (30-150); VLDL Cholesterol 29 mg/dL (0-40)
[2024-06-13 18:02] LABS: Direct LDL Cholesterol 48.78 mg/dL (100-129)
[2024-06-13 18:08] LABS: Troponin I < 0.01 ng/ml (0.00-0.034)
[2024-06-13 18:20] LABS: Activated Partial Thrombo Time 22.2 seconds (22.8-30.6); INR 0.98 (0.9-1.1)
[2024-06-13 18:22] LABS: Microscopic, Urine URINE MICROSCOPIC (MICROSCOPIC)
[2024-06-13 18:33] LABS: Appearance,Urine Clear (Clear); Color,Urine Yellow (Yellow)
[2024-06-13 18:34] LABS: Bilirubin,Urine Negative (Negative); Blood, Urine Negative (Negative); Glucose,Urine (UA) Negative (Negative); Ketones,Urine Negative (Negative); Leukocyte Esterase,Urine Negative (Negative); Nitrate,Urine Negative (Negative); Protein,Urine Negative (Negative); Specific Gravity, Urine 1.015 (1.005-1.030); Urobilinogen,Urine 0.2 EU/dl (0.2)
[2024-06-13 18:44] LABS: Amphetamine/Metha Screen,Urine Negative ng/ml (<1000); Barbiturates Screen,Urine Negative ng/ml (<200)
[2024-06-13 18:45] LABS: Benzodiazepines Screen,Urine Negative ng/ml (<200)
[2024-06-13 18:46] LABS: Cocaine Screen,Urine Negative ng/ml (<300); Methadone Screen,Urine Negative ng/ml (<300)
[2024-06-13 18:47] LABS: Cannabinoid Screen,Urine Negative ng/ml (<50)
[2024-06-13 18:48] LABS: Opiate Screen,Urine Negative ng/ml (<300); Phencyclidine Screen,Urine Negative ng/ml (<25)
[2024-06-13 19:25] LABS: Ethyl Alcohol < 10 mg/dl (0-10)
--- NOTE | 2024-06-13 19:35 | PC.NURSE ---
Called [facility] for a transfer for pt. Said they would call their attending and give us a call back
--- NOTE | 2024-06-13 20:22 | HMH.EDGENADL ---
Discharge Plan Disposition Patient Disposition: Left Against Medical Advice Condition: Undetermined Prescriptions Prescriptions: No Action levothyroxine 175 MCG tablet 175 mcg PO DAILY atorvastatin 80 MG tablet 80 mg PO HS isosorbide mononitrate 30 MG tablet 30 mg PO DAILY ranitidine HCl 150 MG tablet 150 mg PO BID metoprolol tartrate 50 MG tablet 25 mg PO BID allopurinol 300 MG tablet 300 mg PO DAILY lisinopril 40 MG tablet 40 mg PO DAILY capsaicin-methyl alina-menthol 10 ML lotion 10 ml TP QID vitamin E 1,000 UNIT capsule 1,000 unit PO DAILY aspirin 81 MG tablet,delayed release (DR/EC) 81 mg PO DAILY cyanocobalamin (vitamin B-12) 1,000 MCG capsule 1,000 mcg PO DAILY levofloxacin 500 MG tablet 500 mg PO DAILY Qty: 7 0RF phenazopyridine 200 MG tablet 200 pow PO TID Qty: 6 0RF amoxicillin-pot clavulanate 1 EACH tablet 1 tab PO BID 7 Days Qty: 14 0RF dicyclomine 10 MG capsule 10 mg PO TID Qty: 12 0RF ondansetron HCl 4 MG tablet 4 mg PO Q6 PRN (Reason: Nausea) Qty: 12 0RF Referrals Follow up/Referrals: Provider,Referral, MD [Primary Care Provider] - See instructions Clinical Impressions Clinical Impression: TIA (transient ischemic attack), Carotid stenosis Print Language Print Language: Nigerien Discharge ED Provider: Slade Rivera General Adult HPI <Zahra Peñaloza APRN - Last Filed: 06/13/24 20:53> General Chief complaint: Neuro Symptoms/Deficit Stated complaint: Weakness Time Seen by Provider: 06/13/24 17:30 Mode of Arrival: EMS Source of Information: Patient and EMS Description of Symptoms (Recalled from ER Triage Doc. by RN): @[id number] pt noted to have left sided facial droop,numbness and left arm weakness that lasted approx 30-45 minutes per . has history of stroke, and multiple PA History of Present Illness HPI narrative: patient is a 69-year-old male PMHx history of CVA, history of PA, stents placed, AAA, hx renal insufficiency who presents to the ED for stroke like symptoms that started at 0400pm while taking the trash out. Patient states that he developed a right sided facial droop, right-sided facial numbness and left arm numbness. He states his symptoms lasted is about 30 to 40 minutes and completely resolved upon arrival to the ED. Patient denies having any residual weakness from previous stroke. Related Data Home Medications ?Medication ?Instructions ?Recorded ?Confirmed allopurinol 300 mg tablet 300 mg PO DAILY gout 07/20/18 07/20/18 aspirin 81 mg tablet,delayed 81 mg PO DAILY CAD 07/20/18 07/20/18 release atorvastatin 80 mg tablet 80 mg PO HS Cholesterol 07/20/18 07/20/18 capsaicin 0.025 %-methyl 10 ml TP QID Skin condition 07/20/18 07/20/18 salicylate 25 %-menthol 10 % lotion cyanocobalamin (vitamin B-12) 1,000 mcg PO DAILY Diet supplement 07/20/18 07/20/18 1,000 mcg capsule isosorbide mononitrate 30 mg 30 mg PO DAILY CAD 07/20/18 07/20/18 tablet,extended release 24 hr levothyroxine 175 mcg tablet 175 mcg PO DAILY thyroid 07/20/18 07/20/18 lisinopril 40 mg tablet 40 mg PO DAILY CAD 07/20/18 07/20/18 metoprolol tartrate 50 mg tablet 25 mg PO BID CAD 07/20/18 07/20/18 ranitidine HCl 150 mg tablet 150 mg PO BID GERD 07/20/18 07/20/18 vitamin E 670 mg (1,000 unit) 1,000 unit PO DAILY Diet supplement 07/20/18 07/20/18 capsule Previous Rx's ?Medication ?Instructions ?Recorded levofloxacin 500 mg tablet 500 mg PO DAILY #7 tabs 07/20/18 phenazopyridine 200 mg tablet 200 pow PO TID #6 tabs 07/20/18 amoxicillin 500 mg-potassium 1 tab PO BID 7 days #14 tabs 08/26/19 clavulanate 125 mg tablet dicyclomine 10 mg capsule 10 mg PO TID #12 caps 01/09/20 ondansetron HCl 4 mg tablet 4 mg PO Q6 PRN Nausea #12 tabs 01/09/20 Allergies Allergy/AdvReac Type Severity Reaction Status Date / Time BEE VENOM Allergy Unknown SWELLING Uncoded 03/21/17 15:34 ALL OVER [facility] <Zahra Peñaloza APRN - Last Filed: 06/13/24 20:53> [facility] Disclaimer: The information contained in this section may have been updated after the patient was seen, as this information can be updated by other users. Social History Smoking Status: Former smoker tobacco type: cigarettes packs per day: 2 alcohol intake: never current occupational status: other Travel in the last 8 weeks: None household members: other housing: other Have you lived/traveled outside US in past 30 days?: No Contact w/someone who lives/traveled outside US past 30 days?: No Exposure to someone with infectious disease in past 14 days?: No Do you have a fever (greater than 100.4 F or 38 C)?: No Have you tested positive for COVID-19: No Exposed to someone with COVID-19 in past 14 days?: No Do you have a sore throat?: No Do you have a cough?: No Do you have any weakness?: Yes Do you have any diarrhea?: No Are you experiencing any unusual bleeding?: No Do you have any muscle aches/pain?: No Do you have any abdominal pain?: No Are you experiencing loss of taste or smell?: No Other Medical History Have you received the Flu Vaccine for this season: No Have you received the Pneumonia Vaccine: No <Zahra Peñaloza APRN - Last Filed: 06/13/24 20:53> ROS Obtained: Yes Systems reviewed as appropriate & no additional complaints except as documented Physical Exam <Zahra Peñaloza APRN - Last Filed: 06/13/24 20:53> General General appearance: alert and in no apparent distress Head Head exam: atraumatic and normocephalic Eye Eye exam: Present normal appearance and PERRL ENT ENT exam: Present normal exam Neck Neck exam: Present normal inspection Chest Chest inspection: Present normal inspection and symmetric chest wall rise; Absent tenderness Respiratory Respiratory exam: Present normal lung sounds bilaterally Cardiovascular Cardiovascular exam: Present regular rate Abdominal Exam Abdominal exam: Present soft and normal bowel sounds; Absent tenderness Extremities Exam Extremities exam: Present normal inspection and full ROM Back Exam Back exam: Present normal inspection and full ROM Neurological Exam Neurological exam: Present alert and oriented X3 Psychiatric Psychiatric exam: Present normal affect and normal mood Skin Skin exam: Present warm and dry Medical Decision Making <Zahra Peñaloza APRN - Last Filed: 06/13/24 20:53> Medical Records Screening: Per USPSTF and CDC recommendations, given the prevalence of disease in our region, it is our hospital?s policy to screen for HIV and viral Hepatitis for all patients aged 18 and over and those with ongoing risk factors. Simone Inquiry Pt receiving controlled substance: No Vital Signs: 06/13/24 17:27 06/13/24 17:34 06/13/24 18:00 Temperature 98.6 F Temperature Source Oral Pulse Rate 43 L 43 L Pulse Rate [Right] 87 Respiratory Rate 16 20 20 Blood Pressure 175/68 H 175/68 H Blood Pressure [Right Arm] 175/68 H Blood Pressure Mean 86 Blood Pressure Mean [Right Arm] 103 Blood Pressure Position 02 Sat by Pulse Oximetry 96 94 L 97 Oxygen Delivery Method Room Air 06/13/24 18:18 06/13/24 18:31 06/13/24 19:01 Temperature Temperature Source Pulse Rate 42 L 40 L 39 L Pulse Rate [Right] Respiratory Rate 18 25 H 20 Blood Pressure 128/61 128/63 136/65 Blood Pressure [Right Arm] Blood Pressure Mean Blood Pressure Mean [Right Arm] Blood Pressure Position 02 Sat by Pulse Oximetry 95 94 L 95 Oxygen Delivery Method Room Air Room Air 06/13/24 20:38 Temperature 97.9 F Temperature Source Oral Pulse Rate 80 Pulse Rate [Right] Respiratory Rate 16 Blood Pressure 129/58 L Blood Pressure [Right Arm] Blood Pressure Mean Blood Pressure Mean [Right Arm] Blood Pressure Position Supine 02 Sat by Pulse Oximetry Oxygen Delivery Method Room Air Lab Data Lab Results 06/13/24 17:20: WBC 12.4 H, RBC 4.43 L, Hgb 14.8, Hct 42.9, MCV 96.8 H, MCH 33.4 H, MCHC 34.5, RDW 13.1, Plt Count 219, MPV 11.0 H, Neut % (Auto) 67.8, Lymph % (Auto) 23.1, Ford % (Auto) 7.8, Eos % (Auto) 0.7, Baso % (Auto) 0.2, Neut # (Auto) 8.4 H, Lymph # (Auto) 2.9, Ford # (Auto) 1.0, Eos # (Auto) 0.1, Baso # (Auto) 0.0, PT 11.0, INR 0.98, APTT 22.2 L, Sodium 135 L, Potassium 4.4, Chloride 102, Carbon Dioxide 23, Anion Gap 14.4, BUN 15, Creatinine 1.30 H, Estimated Creat Clear 84, Estimated GFR 55 L, Est GFR ( Amer) 66, Glucose 94, Calcium 9.3, Total Bilirubin 1.0, AST 59, ALT 63, Alkaline Phosphatase 113, Troponin I < 0.01, Total Protein 7.4, Albumin 4.9, Globulin 2.5, Albumin/Globulin Ratio 2.0 H, Triglycerides 144, Cholesterol 100 L, LDL Cholesterol Direct 48.78 L, VLDL Cholesterol 29, HDL Cholesterol 27 L, Cholesterol/HDL Ratio 3.7 H, Plasma/Serum Alcohol < 10 06/13/24 18:17: Urine Color Yellow, Urine Appearance Clear, Urine pH 6.0, Ur Specific Parker 1.015, Urine Protein Negative, Urine Glucose (UA) Negative, Urine Ketones Negative, Urine Blood Negative, Urine Nitrate Negative, Urine Bilirubin Negative, Urine Urobilinogen 0.2, Ur Leukocyte Esterase Negative, Urine Opiates Screen Negative, Urine Methadone Screen Negative, Ur Barbituates Screen Negative, Ur Phencyclidine Scrn Negative, Ur Amphetamines Screen Negative, U Benzodiazepines Scrn Negative, Urine Cocaine Screen Negative, U Marijuana (THC) Screen Negative 06/13/24 17:20 06/13/24 17:20 Orders (Tests/Meds): ED MEDICATIONS Discontinued Medications Generic Name Dose Route Start Last Admin Trade Name Aggie PRN Reason Stop Dose Admin Iopamidol 80 ml 06/13/24 17:38 06/13/24 17:39 Iopamidol-370 (76%);100ml Bottle IV 06/13/24 17:39 80 ml ONCE ONE Administration Sodium Chloride 10 ml 06/13/24 17:31 Sodium Chloride 0.9% 10ml Flush Syringe IV 07/13/24 17:30 NEEDED PRN Maintain IV Site Sodium Chloride 50 ml 06/13/24 17:38 06/13/24 17:39 0.9 % Sodium Chloride 50 Ml Vial IV 06/13/24 17:39 50 ml ONCE ONE Administration Sodium Chloride 10 ml 06/13/24 17:38 06/13/24 17:39 Sodium Chloride 0.9% 10ml Syr (Rad Only) IV 07/13/24 17:37 10 ml NEEDED PRN Administration Maintain IV Site ORDERS Category Date Time Status CT angio head Stat Cat Scan 06/13/24 17:[address] angio neck Stat Cat Scan 06/13/24 17:[address] head/brain wo con Stat Cat Scan 06/13/24 17:30 Completed Activated Partial Thrombo Time Stat Lab 06/13/24 17:20 Completed Complete Blood Count Auto Diff Stat Lab 06/13/24 17:20 Completed Comprehensive Metabolic Panel Stat Lab 06/13/24 17:20 Completed Drug Screen,Urine Stat Lab 06/13/24 18:17 Completed Ethyl Alcohol Stat Lab 06/13/24 17:20 Completed Lipid Panel Stat Lab 06/13/24 17:20 Completed Prothrombin Time INR Stat Lab 06/13/24 17:20 Completed Troponin I Stat Lab 06/13/24 17:20 Completed Urinalysis and Microscopic Stat Lab 06/13/24 18:17 Completed Medical Decision Narrative: In summary, patient is a 69-year-old male PMHx history of CVA, history of PA, stents placed, AAA, hx renal insufficiency who presents to the ED for stroke like symptoms that started at 0400pm while taking the trash out. Patient states that he developed a right sided facial droop, right-sided facial numbness and left arm numbness. He states his symptoms lasted is about 30 to 40 minutes and completely resolved upon arrival to the ED. Patient denies having any residual weakness from previous stroke. He is on Plavix, aspirin and a statin. He has not taken his daily medications prior to arrival. Upon initial exam, patient is alert, oriented and cooperative. Patient is hemodynamically stable. Physical exam unremarkable. NIH 0. Denies fever, chills, body aches, headache, visual disturbances, posterior neck pain, chest pain, shortness of breath, abdominal pain. Differential diagnosis includes CVA, TIA, ACS, ICH, mass, infectious process, electrolyte abnormality, among others. Initial workup will be conducted with hematologic labs, imaging. Patient was stroke alerted upon arrival. Initial workup reviewed by me. Hematologic labs remarkable for mild leukocytosis, WBC 12.4, stable H&H. CMP remarkable for sodium 135, creatinine 1.30, BUN 15. Cholesterol 100, LDL 48.78, HDL 27, cholesterol to HDL ratio 3.7. Head CT remarkable for small vessel changes, no hyperattenuating foci to suggest acute intracranial hemorrhage. Final read of the neck CTA remarkable for right carotid bulb moderate stenosis of the proximal right ICA, moderate atherosclerotic disease of the left carotid bulb resulting in moderate stenosis. Head CTA final read remarkable for severe calcific atherosclerotic disease of the right intracranial ICA resulting in severe stenosis of the cavernous segment. Moderate calcific atherosclerotic disease of the left intracranial ICA resulting in moderate stenosis of the ophthalmic segment. [facility] due to stroke-like symptoms with culprit vessel. While [facility], patient states that he is leaving AGAINST MEDICAL ADVICE. Patient states that he is hungry and wants to go home and take a shower. He states that if he needs to he will have [facility]. I had an in-depth discussion with the patient that it is extremely dangerous with these findings to leave AGAINST MEDICAL ADVICE and could result in , patient states I am stubborn and I am not changing my mind. Patient verbalized understanding of the risk of leaving AGAINST MEDICAL ADVICE. He was hemodynamically stable, alert and oriented, had decision-making capacity and signed form. Ambulatory without difficulty from the ED. <Slade Rivera MD - Last Filed: 06/13/24 22:13> Vital Signs: 06/13/24 17:27 06/13/24 17:34 06/13/24 18:00 Temperature 98.6 F Temperature Source Oral Pulse Rate 43 L 43 L Pulse Rate [Right] 87 Respiratory Rate 16 20 20 Blood Pressure 175/68 H 175/68 H Blood Pressure [Right Arm] 175/68 H Blood Pressure Mean 86 Blood Pressure Mean [Right Arm] 103 Blood Pressure Position 02 Sat by Pulse Oximetry 96 94 L 97 Oxygen Delivery Method Room Air 06/13/24 18:18 06/13/24 18:31 06/13/24 19:01 Temperature Temperature Source Pulse Rate 42 L 40 L 39 L Pulse Rate [Right] Respiratory Rate 18 25 H 20 Blood Pressure 128/61 128/63 136/65 Blood Pressure [Right Arm] Blood Pressure Mean Blood Pressure Mean [Right Arm] Blood Pressure Position 02 Sat by Pulse Oximetry 95 94 L 95 Oxygen Delivery Method Room Air Room Air 06/13/24 20:38 Temperature 97.9 F Temperature Source Oral Pulse Rate 80 Pulse Rate [Right] Respiratory Rate 16 Blood Pressure 129/58 L Blood Pressure [Right Arm] Blood Pressure Mean Blood Pressure Mean [Right Arm] Blood Pressure Position Supine 02 Sat by Pulse Oximetry Oxygen Delivery Method Room Air Lab Data Lab Results 06/13/24 17:20: WBC 12.4 H, RBC 4.43 L, Hgb 14.8, Hct 42.9, MCV 96.8 H, MCH 33.4 H, MCHC 34.5, RDW 13.1, Plt Count 219, MPV 11.0 H, Neut % (Auto) 67.8, Lymph % (Auto) 23.1, Ford % (Auto) 7.8, Eos % (Auto) 0.7, Baso % (Auto) 0.2, Neut # (Auto) 8.4 H, Lymph # (Auto) 2.9, Ford # (Auto) 1.0, Eos # (Auto) 0.1, Baso # (Auto) 0.0, PT 11.0, INR 0.98, APTT 22.2 L, Sodium 135 L, Potassium 4.4, Chloride 102, Carbon Dioxide 23, Anion Gap 14.4, BUN 15, Creatinine 1.30 H, Estimated Creat Clear 84, Estimated GFR 55 L, Est GFR ( Amer) 66, Glucose 94, Calcium 9.3, Total Bilirubin 1.0, AST 59, ALT 63, Alkaline Phosphatase 113, Troponin I < 0.01, Total Protein 7.4, Albumin 4.9, Globulin 2.5, Albumin/Globulin Ratio 2.0 H, Triglycerides 144, Cholesterol 100 L, LDL Cholesterol Direct 48.78 L, VLDL Cholesterol 29, HDL Cholesterol 27 L, Cholesterol/HDL Ratio 3.7 H, Plasma/Serum Alcohol < 10 06/13/24 18:17: Urine Color Yellow, Urine Appearance Clear, Urine pH 6.0, Ur Specific Parker 1.015, Urine Protein Negative, Urine Glucose (UA) Negative, Urine Ketones Negative, Urine Blood Negative, Urine Nitrate Negative, Urine Bilirubin Negative, Urine Urobilinogen 0.2, Ur Leukocyte Esterase Negative, Urine Opiates Screen Negative, Urine Methadone Screen Negative, Ur Barbituates Screen Negative, Ur Phencyclidine Scrn Negative, Ur Amphetamines Screen Negative, U Benzodiazepines Scrn Negative, Urine Cocaine Screen Negative, U Marijuana (THC) Screen Negative Orders (Tests/Meds): ED MEDICATIONS Discontinued Medications Generic Name Dose Route Start Last Admin Trade Name Freq PRN Reason Stop Dose Admin Iopamidol 80 ml 06/13/24 17:38 06/13/24 17:39 Iopamidol-370 (76%);100ml Bottle IV 06/13/24 17:39 80 ml ONCE ONE Administration Sodium Chloride 10 ml 06/13/24 17:31 Sodium Chloride 0.9% 10ml Flush Syringe IV 07/13/24 17:30 NEEDED PRN Maintain IV Site Sodium Chloride 50 ml 06/13/24 17:38 06/13/24 17:39 0.9 % Sodium Chloride 50 Ml Vial IV 06/13/24 17:39 50 ml ONCE ONE Administration Sodium Chloride 10 ml 06/13/24 17:38 06/13/24 17:39 Sodium Chloride 0.9% 10ml Syr (Rad Only) IV 07/13/24 17:37 10 ml NEEDED PRN Administration Maintain IV Site ORDERS Category Date Time Status CT angio head Stat Cat Scan 06/13/24 17:[address] angio neck Stat Cat Scan 06/13/24 17:[address] head/brain wo con Stat Cat Scan 06/13/24 17:30 Completed Activated Partial Thrombo Time Stat Lab 06/13/24 17:20 Completed Complete Blood Count Auto Diff Stat Lab 06/13/24 17:20 Completed Comprehensive Metabolic Panel Stat Lab 06/13/24 17:20 Completed Drug Screen,Urine Stat Lab 06/13/24 18:17 Completed Ethyl Alcohol Stat Lab 06/13/24 17:20 Completed Lipid Panel Stat Lab 06/13/24 17:20 Completed Prothrombin Time INR Stat Lab 06/13/24 17:20 Completed Troponin I Stat Lab 06/13/24 17:20 Completed Urinalysis and Microscopic Stat Lab 06/13/24 18:17 Completed ECG Data Tracing #1: I reviewed this ECG and interpreted as documented below: (Sinus rhythm frequent PVCs. Left axis deviation. Ventricular rate 87 beats minute, MA 131, QRS 135, QTc 451. No acute ischemic change) Medical Decision Narrative: In summary, patient is a 69-year-old male PMHx history of CVA, history of PA, stents placed, AAA, hx renal insufficiency who presents to the ED for stroke like symptoms that started at 0400pm while taking the trash out. Patient states that he developed a right sided facial droop, right-sided facial numbness and left arm numbness. He states his symptoms lasted is about 30 to 40 minutes and completely resolved upon arrival to the ED. Patient denies having any residual weakness from previous stroke. He is on Plavix, aspirin and a statin. He has not taken his daily medications prior to arrival. Upon initial exam, patient is alert, oriented and cooperative. Patient is hemodynamically stable. Physical exam unremarkable. NIH 0. Denies fever, chills, body aches, headache, visual disturbances, posterior neck pain, chest pain, shortness of breath, abdominal pain. Differential diagnosis includes CVA, TIA, ACS, ICH, mass, infectious process, electrolyte abnormality, among others. Initial workup will be conducted with hematologic labs, imaging. Patient was stroke alerted upon arrival. Initial workup reviewed by me. Hematologic labs remarkable for mild leukocytosis, WBC 12.4, stable H&H. CMP remarkable for sodium 135, creatinine 1.30, BUN 15. Cholesterol 100, LDL 48.78, HDL 27, cholesterol to HDL ratio 3.7. Head CT remarkable for small vessel changes, no hyperattenuating foci to suggest acute intracranial hemorrhage. Final read of the neck CTA remarkable for right carotid bulb moderate stenosis of the proximal right ICA, moderate atherosclerotic disease of the left carotid bulb resulting in moderate stenosis. Head CTA final read remarkable for severe calcific atherosclerotic disease of the right intracranial ICA resulting in severe stenosis of the cavernous segment. Moderate calcific atherosclerotic disease of the left intracranial ICA resulting in moderate stenosis of the ophthalmic segment. [facility] due to stroke-like symptoms with culprit vessel. While [facility], patient states that he is leaving AGAINST MEDICAL ADVICE. Patient states that he is hungry and wants to go home and take a shower. He states that if he needs to he will have [facility]. I had an in-depth discussion with the patient that it is extremely dangerous with these findings to leave AGAINST MEDICAL ADVICE and could result in , patient states I am stubborn and I am not changing my mind. Patient verbalized understanding of the risk of leaving AGAINST MEDICAL ADVICE. He was hemodynamically stable, alert and oriented, had decision-making capacity and signed form. Ambulatory without difficulty from the ED. I had conversations with [facility] as well as [facility]. They agreed the patient was most appropriate to be transferred with ABCD 2 score of 6. Prior to transfer, patient stated that he no longer wanted to be admitted and worked up. I was consulted by the [facility], and we discussed the complexity of the problems being addressed. I approved the treatment and management plan for this patient's care in the Emergency Department, thus performing a substantive portion of the medical decision making. The patient left AGAINST MEDICAL ADVICE after a thorough discussion of the risks of doing so, including a discussion of potential alternative plans. These risks include but are not limited to clinical decompensation, shelter disability and . The patient appears capable of making this decision. I have advised the patient to immediately return if there are any further problems or if they change their mind about seeking further care. Slade Rivera MD Critical Care <Zahra Peñaloza, FRONT DESK MONITOR - Last Filed: 06/13/24 20:53> Critical Care Time Critical Care Time: No
--- NOTE | 2024-06-13 20:41 | PC.NURSE ---
Patient leaving [facility]. States i know, i'm just stubborn. Provider told patient about risks of leaving [facility], up to and including . Patient states he is agreeable to this.
== END 2024-06-13 20:43 | disposition left against medical advice (07) ==
PROVIDERS: Emergency Provider Emergency Medicine
DX: I65.23 Occlusion and stenosis of bilateral carotid arteries (principal); R29.810 Facial weakness; R20.0 Anesthesia of skin; Z87.891 Personal history of nicotine dependence; Z86.73 Personal history of transient ischemic attack (TIA), and cerebral infarction without residual deficits; Z86.79 Personal history of other diseases of the circulatory system; Z95.5 Presence of coronary angioplasty implant and graft; I10 Essential (primary) hypertension
CPT/HCPCS: 70450; 70496; 70498; 80053; 80061; 80307; 80320; 81001; 84484; 85025; 85610; 85730; 93005; 99285; Q9967